=== PATIENT | male | born 1975 | race Caucasian/White ===

== ENCOUNTER → 2017-06-24 | Outpatient (CLI) | payer OTHER ==
[~2017-06-24] MED LIST: Dilantin PO; dilantin PO
--- NOTE | 2017-06-24 15:42 | RAD ---
2 views left knee 06/24/2017 2:00 AM Indication: LEFT HIP AND KNEE PAIN Comparison: None Findings: Nonstandard technique limits evaluation. No definitive fracture dislocation is identified. No gross effusion is seen. No other acute abnormalities are identified. Impression: Limited study without evidence of acute osseous abnormality
--- NOTE | 2017-06-24 16:25 | RAD ---
Indication: Hip and knee pain, unable to bear weight. Technique: 2 views of the left hip are submitted for review. No comparison is available. Findings: There is no fracture or dislocation. There is mild narrowing of the joint space superiorly. Impression: Negative for fracture. Mild joint space narrowing.
== END | disposition home or self-care (01) ==
LOC: PMG 14:04
PROVIDERS: ATTEND Physician Assistant
DX: M25.552 Pain in left hip (principal); M25.562 Pain in left knee
CPT/HCPCS: 73502; 73560

== ENCOUNTER 2018-05-08 15:09 | Emergency (ER) | payer OTHER ==
--- NOTE | 2018-05-08 16:04 | EKG ---
[address] [address] Test Date: 2018-05-08 Test Time: 16:00:14 Pat Name: ANTONINO CAMPBELL Department: Room: Gender: M Licensed Home Inspector: : [id number] Requested By: STEPHANIE GRAVES Order Number: [id number] Reading MD: Baldemar Dubon MD Measurements Intervals [place] Rate: 59 P: 63 MA: 164 QRS: 80 QRSD: 104 T: 52 QT: 398 QTc: 394 Interpretive Statements SINUS RHYTHM LVH WITH REPOLARIZATION ABNORMALITY ABNORMAL ECG Electronically Signed On 05-09-2018 11:48:58 CDT by Baldemar Dubon MD
--- NOTE | 2018-05-08 16:29 | RAD ---
Examination: CHEST AP ONLY History: PORTABLE CHEST XRAY 1 VIEW - nausea, decreased mental status Comparison/Correlation: 08/31/2013 portable chest x-ray exam Findings: Portable upright frontal view of the chest was obtained. Heart size is borderline to mildly enlarged. Left rib fracture is noted. Surgical clips overlying the superior mediastinum. Scoliosis noted. No infiltrate or pleural effusion. No pneumothorax. Impression: No active disease. Electronically signed by: Joel Morales MD (05/08/2018 4:26 PM) [facility]
[2018-05-08] MEDS ORDERED: IV NORMAL SALINE 1,000ML 1,000 ML IV ONE (16:30)
[2018-05-08] MEDS ORDERED: ONDANSETRON PF 4 MG/2 ML VIAL. IV ONE (16:30)
[2018-05-08 16:47] LABS: BASO % 0 % (0-3); EOS # 0.1 x10^3/uL (0.0-0.7); EOS % 1 % (0-3); HEMATOCRIT 46.9 % (39.0-53.0); HEMOGLOBIN 15.8 g/dL (13.0-17.5); LYMPH # 1.7 x10^3/uL (1.0-4.8); LYMPH % 29 % (24-48); MEAN CORPUSCULAR HEMOGLOBIN 30 pg (25-35); MEAN CORPUSCULAR HGB CONC 34 g/dL (31-37); MEAN CORPUSCULAR VOLUME 91 fL (79-100); MONO # 0.4 x10^3/uL (0.0-1.1); MONO % 7 % (0-9); NEUT # 3.5 x10^3uL (1.8-7.7); NEUT % 62 % (31-73); PLATELET COUNT 160 x10^3/uL (140-400); RED BLOOD COUNT 5.18 x10^6/uL (4.30-5.70); RED CELL DISTRIBUTION WIDTH 13.6 % (11.5-14.5); WHITE BLOOD COUNT 5.6 x10^3/uL (4.0-11.0)
[2018-05-08] MEDS ORDERED: amLODIPine BESYLATE 5 MG TABLET PO ONE (17:30)
--- NOTE | 2018-05-08 17:30 | PHYS DOC ---
Past History Past Medical History: Hypertension, Seizure, Other Past Surgical History: Other Alcohol Use: None Drug Use: None Adult General Chief Complaint Chief Complaint: NAUSEA/VOMITING/DIARRHEA HPI HPI Patient is a 43-year-old male with a history of hypertension and seizure disorder who was brought in by caregiver with a chief complaint of nausea and vomiting. Apparently when the patient doesn't feel well and sometimes just for behavioral reasons he will stick his finger down his throat into intermittent emesis. He has been doing that all day today. Normally in the past he would only do it once or twice but apparently this afternoon he did several times over and they could not get him to stop so they brought him to the emergency room for evaluation. History is limited by the patient's nonverbal status at baseline but according to the caregiver the patient has not had fever cough other than coughing after vomiting no diarrhea had a normal large bowel movement this morning have been eating well up until this happened just around lunchtime. Review of Systems Review of Systems Limited by nonverbal at baseline mental status Current Medications Current Medications Current Medications Medications (Trade) Dose Ordered Sig/Facundo Start Time Stop Time Status Last Admin Dose Admin Ondansetron HCl (Zofran) 4 mg 1X ONCE 05/08/18 16:30 05/08/18 16:31 DC 05/08/18 16:37 4 MG Sodium Chloride 1,000 ml @ 1,000 mls/hr 1X ONCE 05/08/18 16:30 05/08/18 17:29 05/08/18 16:30 1,000 MLS/HR Allergies Allergies Allergies Coded Allergies Type Severity Reaction Last Updated Verified No Known Drug Allergies 08/31/13 No Physical Exam Physical Exam Constitutional: Developmental delays obvious HENT: Normocephalic, atraumatic, bilateral external ears normal, oropharynx dry , no oral exudates, nose normal. [] Eyes: PERRLA, EOMI, conjunctiva normal, no discharge. [] Neck: Normal range of motion, no tenderness, supple, no stridor. [] Cardiovascular: Mild tachycardia noted no definite murmurs[] Lungs & Thorax: Bilateral breath sounds clear to auscultation []decreased breath sounds at bilateral lung bases Abdomen: Bowel sounds normal, soft, no tenderness, no masses, no pulsatile masses. [] Skin: Warm, dry, no erythema, no rash. [] Back: No tenderness, no CVA tenderness. [] Extremities: Obvious contractures are noted in the upper extremities neurologic : Patient is nonverbal baseline does smile and response to smile does not really follow commands has obvious contractures and limited neurologic exam. Pupils are equal round and reactive to light P Current Patient Data Vital Signs Vital Signs Date Time Temp Pulse Resp B/P (MAP) Pulse Ox O2 Delivery O2 Flow Rate FiO2 05/08/18 15:17 97.6 68 16 98 Room Air Lab Results Laboratory Tests Test 05/08/18 16:25 White Blood Count 5.6 x10^3/uL (4.0-11.0) Red Blood Count 5.18 x10^6/uL (4.30-5.70) Hemoglobin 15.8 g/dL (13.0-17.5) Hematocrit 46.9 % (39.0-53.0) Mean Corpuscular Volume 91 fL (79-100) Mean Corpuscular Hemoglobin 30 pg (25-35) Mean Corpuscular Hemoglobin Concent 34 g/dL (31-37) Red Cell Distribution Width 13.6 % (11.5-14.5) Platelet Count 160 x10^3/uL (140-400) Neutrophils (%) (Auto) 62 % (31-73) Lymphocytes (%) (Auto) 29 % (24-48) Monocytes (%) (Auto) 7 % (0-9) Eosinophils (%) (Auto) 1 % (0-3) Basophils (%) (Auto) 0 % (0-3) Neutrophils # (Auto) 3.5 x10^3uL (1.8-7.7) Lymphocytes # (Auto) 1.7 x10^3/uL (1.0-4.8) Monocytes # (Auto) 0.4 x10^3/uL (0.0-1.1) Eosinophils # (Auto) 0.1 x10^3/uL (0.0-0.7) Basophils # (Auto) 0.0 x10^3/uL (0.0-0.2) Troponin I Quantitative < 0.017 ng/mL (0-0.055) EKG EKG []EKG shows a normal sinus rhythm rate of 59 LVH pattern is noted in light of that no obvious ischemia was identified this was interpreted by me the time of encounter. Relatively poor baseline somewhat limits the evaluation of the ST segments but don't see any obvious ischemia. Radiology/Procedures Radiology/Procedures [] Impressions: Chest x-ray showed no active chest disease Course & Med Decision Making Course & Med Decision Making Pertinent Labs and Imaging studies reviewed. (See chart for details) 43-year-old male history of developmental delay seizure disorder and hypertension who is presenting with complaint of vomiting apparently patient has had recurrent episodes in his life where he will try to stick his fingers down his throat when he doesn't feel well. He was doing the same thing today. No specific complaint limited historian so plan for basic lab workup EKG troponin urinalysis chest x-ray and labs to evaluate for metabolic or infectious etiology known hypertension blood pressure was 190/107 came down to 150's with no treatment. given zofran with some improvement. sign to niels at 540 pm pending chemistries and u/a. See Dr. Graves note for details. 1. Nausea and Vomiting ( after sticking finger down his throat) 2. UTI? 3. Development Disorder 4. Hx. of SZ-disorder 5. Hx. of HTN 6. Rib fx Give Bactrim DS twice a day. Clear fluid diet. Zofran 8 mg up to 4 x day for nausea and vomiting. ( Will not help if he is sticking his finger down throat. ) Discussed pt Hx with [facility]. They advised he had a normal stool today. No hx of fevers. Has hx of sticking fingers down his throat when does not want to eat something or when he gets ill or when he get upset. No hx of specific ill exposures. No hx of changes in meds. They will monitor him closely and return if any concerns. Re-exam if no improvement. Return tonight if any concerns. Dragon Disclaimer Dragon Disclaimer This electronic medical record was generated, in whole or in part, using a voice recognition dictation system. Departure Departure: Referrals: JANICE MATHEW (PCP) Scripts Ondansetron (ZOFRAN ODT) 8 Mg Tab.rapdis 8 MG PO QID PRN for nv, #30 Prov: JOHANNY DIAZ MD 05/08/18 Sulfamethoxazole/Trimethoprim (BACTRIM DS TABLET) 1 Each Tablet 1 TAB PO BID, #14 TAB Prov: JOHANNY DIAZ MD 05/08/18 STEPHANIE GRAVES MD May 08, 2018 17:30 JOHANNY DIAZ MD May 08, 2018 20:45
[2018-05-08 18:09] LABS: ALBUMIN 4.2 g/dL (3.4-5.0); CALCIUM 9.1 mg/dL (8.5-10.1); CREATININE 0.7 mg/dL (0.7-1.3); GFR 124.3; POTASSIUM 3.4 mmol/L (3.5-5.1); TOTAL BILIRUBIN 0.2 mg/dL (0.2-1.0); TOTAL PROTEIN 8.6 g/dL (6.4-8.2)
[2018-05-08 18:24] LABS: BILIRUBIN,URINE NEG (NEG); CLARITY,URINE CLOUDY; COLOR,URINE YELLOW; GLUCOSE,URINE NEG (NEG)
[2018-05-08 18:25] LABS: AMORPHOUS SEDIMENT,UR PRESENT /HPF; BACTERIA,URINE FEW /HPF (0-FEW); NITRITE,URINE POS (NEG); RBC,URINE 0 /HPF (0-2); SQUAMOUS EPITHELIAL CELL,UR OCC /LPF; UROBILINOGEN,URINE 0.2 mg/dL (0.2 mg/dL); WBC,URINE OCC /HPF (0-4)
[2018-05-08] MEDS ORDERED: SMZ/TMP 800/160MG TABLET. PO ONE (18:45)
[2018-05-08] MEDS ORDERED: ONDA8TAB12 PO (18:47)
[2018-05-08] MEDS ORDERED: SULF1TAB24 PO (18:47)
[2018-05-08 19:01] VITALS: BP 129/98
== END 2018-05-08 19:14 | disposition home or self-care (01) ==
LOC: ER 15:09
DX: R11.2 Nausea with vomiting, unspecified (principal); R62.50 Unspecified lack of expected normal physiological development in childhood; G40.909 Epilepsy, unspecified, not intractable, without status epilepticus; I10 Essential (primary) hypertension; S22.32XA Fracture of one rib, left side, initial encounter for closed fracture; X58.XXXA Exposure to other specified factors, initial encounter; Y93.89 Activity, other specified; Y92.89 Other specified places as the place of occurrence of the external cause; Y99.8 Other external cause status
CPT/HCPCS: 36415; 71045; 80053; 81001; 83690; 84484; 85025; 87086; 93005; 96361; 96374; 99285; J2405; 87186; J7030

== ENCOUNTER 2018-06-08 09:14 | Inpatient (IN) | payer MEDICARE, OTHER ==
[~2018-06-08] VITALS: Ht 142.2 cm; Wt 40.4 kg
[~2018-06-08 09:14] MED LIST changes: +ONDA8TAB12 PO; +SULF1TAB24 PO
[2018-06-08 10:56] VITALS: BP 122/80
[2018-06-08] MEDS ORDERED: ONDANSETRON PF 4 MG/2 ML VIAL. IV PRN (11:45)
[2018-06-08] MEDS ORDERED: CELE200C PO ×2 (11:52)
[2018-06-08] MEDS ORDERED: IRON45TA3 PO (11:52)
[2018-06-08] MEDS ORDERED: POLY119P19 PO (11:52)
[2018-06-08] MEDS ORDERED: CHOL500016 PO (11:52)
[2018-06-08] MEDS ORDERED: SENN1TAB9 PO (11:52)
[2018-06-08] MEDS ORDERED: KETO120S2 TP (11:52)
[2018-06-08] MEDS ORDERED: AMOX875T PO (11:52)
[2018-06-08] MEDS ORDERED: GUAI-40 PO (11:52)
[2018-06-08] MEDS ORDERED: SENN-80 PO (11:52)
[2018-06-08] MEDS ORDERED: PHEN50TA3 PO (12:48)
[2018-06-08] MEDS ORDERED: PHEN100C PO (12:48)
[2018-06-08 12:49] LABS: ALBUMIN 4.6 g/dL (3.4-5.0); ALBUMIN/GLOBULIN RATIO 0.8 (1.0-1.7); ALK PHOS 142 U/L (46-116); ALT (SGPT) 22 U/L (16-63); ANION GAP 13 (6-14); AST (SGOT) 30 U/L (15-37); BLOOD UREA NITROGEN 37 mg/dL (8-26); BUN/CREATININE RATIO 37 (6-20); CALCIUM 10.1 mg/dL (8.5-10.1); CARBON DIOXIDE 27 mmol/L (21-32); CHLORIDE 101 mmol/L (98-107); GFR 82.3; GLUCOSE 128 mg/dL (70-99); MAGNESIUM 2.6 mg/dL (1.8-2.4); PHENY 22.5 mcg/mL (10.0-20.0); POTASSIUM 3.8 mmol/L (3.5-5.1); SODIUM 141 mmol/L (136-145); TOTAL BILIRUBIN 0.3 mg/dL (0.2-1.0); TOTAL PROTEIN 10.1 g/dL (6.4-8.2)
[2018-06-08] MEDS: IV NORMAL SALINE 1,000ML 1,000 ML IV SCH (13:18)
[2018-06-08 13:43] LABS: BASO % 0 % (0-3); EOS % 0 % (0-3); HEMATOCRIT 52.5 % (39.0-53.0); HEMOGLOBIN 17.5 g/dL (13.0-17.5); LYMPH # 1.2 x10^3/uL (1.0-4.8); LYMPH % 8 % (24-48); MEAN CORPUSCULAR HEMOGLOBIN 30 pg (25-35); MEAN CORPUSCULAR HGB CONC 33 g/dL (31-37); MEAN CORPUSCULAR VOLUME 90 fL (79-100); MONO % 7 % (0-9); NEUT # 12.7 x10^3uL (1.8-7.7); NEUT % 85 % (31-73); PLATELET COUNT 168 x10^3/uL (140-400); RED BLOOD COUNT 5.81 x10^6/uL (4.30-5.70); RED CELL DISTRIBUTION WIDTH 14.1 % (11.5-14.5); WHITE BLOOD COUNT 14.9 x10^3/uL (4.0-11.0)
[2018-06-08] MEDS ORDERED: guaiFENesin/PS-EPHED 600/60MG 1 TAB TAB.ER.12H PO PRN (16:00)
[2018-06-08] MEDS ORDERED: SENNOSIDES/DOCUSATE 8.6/50MG TABLET. PO PRN (16:00)
[2018-06-08] MEDS ORDERED: METOCLOPRAMIDE HCL 10 MG/2 ML VIAL. IV PRN (16:00)
[2018-06-08] MEDS ORDERED: IOHEXOL 300 MG/ML 75 ML VIAL. IV ONE (16:00)
[2018-06-08] MEDS ORDERED: NON FORMULARY ITEM (Ondansetron (Zofran Odt) 8 MG) PO PRN (16:00)
[2018-06-08 16:19] VITALS: BP 126/86
--- NOTE | 2018-06-08 17:08 | HP ---
ADMIT DATE: 06/08/2018 HISTORY OF PRESENT ILLNESS: The patient is a 43-year-old male patient, is a resident in a custodial, who was seen today at his primary care physician and was admitted directly from the office as the patient has been putting his fingers down his throat to induce vomiting. According to his caregiver, the patient has been having this recurrent bouts of cough hiccupping and vomiting. For the last month, he has lost weight about 8 pounds and had the first breakthrough seizures since 2014 and apparently was vomiting his antiepileptic medication. He apparently was seen yesterday by Dr. Matthews and apparently was started on antibiotic and was sent back only to continue with cough, vomiting, and inducing vomiting by putting his finger into his mouth. He was seen in his primary care physician's office today and has had lab work, which showed that he is extremely dehydrated and was admitted for further evaluation and treatment. The patient himself is nonverbal as he has cerebral palsy and does not give any useful information. Most of the information was obtained from his caregiver. PAST MEDICAL HISTORY: Significant for cerebral palsy and seizure disorder. He has also some form of congenital heart disease, although I do not have any specifics. PAST SURGICAL HISTORY: Significant for right great toe amputation done about 12 months. He apparently has had an echocardiogram done in 2014 and at that time it showed that his left ventricular systolic function is normal, ejection fraction estimated at 50-55%. There is normal left ventricular segmental wall motion. Doppler and color flow revealed trace tricuspid regurgitation and the pulmonary artery pressure was estimated at 22 mmHg. 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 FAMILY HISTORY: His mother . Father . His grandmother used to take care of him and was his DPOA. His aunt now takes his financial affairs, but she is not his DPOA. SOCIAL HISTORY: He apparently does not smoke, drink alcohol, or use recreational drugs. He is single, never . He has no children. MEDICATIONS: He is currently on following medications: He was on amoxicillin 875 mg twice a day, sulfamethoxazole/trimethoprim, carbonyl iron for Feosol 45 mg once a day, Celebrex 200 mg capsules daily and Celebrex 200 mg twice a day as needed, phenytoin 75 mg p.o. daily, phenytoin 100 mg extended release capsule once a day. He is on Mucinex, the extended release tablet 1 tablet twice a day, polyethylene glycol 17 grams daily. Senna 1 tablet once a day, Senna-S 1 tablet twice a day. He is ondansetron 8 mg tablet 4 times a day and ketoconazole shampoo applied twice a week. He is also on cholecalciferol (Vitamin D3) 5000 international units once a day. REVIEW OF SYSTEMS: As per history of present illness. PHYSICAL EXAMINATION GENERAL: When I examined him this afternoon, he was resting slightly propped up in bed, in no apparent respiratory distress. There is no pallor, jaundice, cyanosis, or thyromegaly. No jugular venous distension. No lower limb edema. VITAL SIGNS: His heart rate was 101, blood pressure was 122/80, temperature was 98.4, respiratory rate was 20, and oxygen saturation was 97%. HEAD, EYES, EARS, NOSE, AND THROAT: Showed normocephalic, atraumatic. NECK: Supple. HEART: Showed normal first and second heart sounds with no gallop, rub, or murmur. CHEST: Clear to auscultation. No crepitation or rhonchi. ABDOMEN: Distended, soft, nontender. No guarding or rigidity. No organomegaly. All hernial orifice intact. Bowel sounds normal. NEUROLOGIC: He is nonverbal. All his cranial nerves are intact. He moves all extremities spontaneously, although he is mostly bedbound, wheelchair bound. He can walk with a 2-person assist. LABORATORY DATA: Showed that his white cell count was high at 14,900, hemoglobin 17.5, hematocrit 52.5, MCV 90 and platelet count of 168,000. His chemistry showed a serum sodium 141, potassium 3.8, chloride 101, bicarbonate 27, anion gap of 13, BUN 37, creatinine 1, estimated GFR was 82 mL per minute. His glucose was 128, calcium was 7.1, magnesium was 2.6. Total bilirubin, AST and ALT are normal. Alkaline phosphatase is high at 142. His total protein was 10.1, INR of 4.6. His toxic screen showed that his phenytoin was 22.5, which is high. PLAN: My plan is to hold off his Coumadin as he might have phenytoin toxicity. We will continue with IV fluid. We will arrange for him to have a CT scan of the chest without contrast and he will probably need upper GI endoscopy given that he has been on Celebrex 200 mg daily and he takes also 200 mg as needed for pain. We will follow his labs closely and decide on further management accordingly. LINDA AZEVEDO MD DR: PEDRO/rich JOB#: [id number] / [id number]
--- NOTE | 2018-06-08 18:11 | RAD ---
CTA Chest with contrast: Clinical History: COUGHING, ELEVATED D-DIMER, POSSIBLE ASPIRATION. 75MLS OMNI 300 IV CONTRAST Shortness of breath. Axial helical images of the chest were obtained after the administration of 75 cc of IV Omni 300 and timed appropriately for a pulmonary arterial study. Conventional axial reconstruction was performed in addition to coronal, sagittal and bilateral oblique MIP (maximum intensity projection). This study was ordered to detect possible pulmonary embolism. There are no filling defects to suggest pulmonary embolism. The lungs and pleural margins are clear. There is no mediastinal or hilar lymphadenopathy. The thoracic aorta appears normal. The esophagus is mildly distended with fluid. The stomach is collapsed there is apparent moderate wall thickening of the stomach. Impression: 1. No evidence of pulmonary embolism. 2. Apparent moderate wall thickening of the stomach could be nondistention or could be secondary to gastritis 3. the esophagus is mildly distended with fluid. PQRS Compliance Statement: One or more of the following individualized dose reduction techniques were utilized for this examination: 1. Automated exposure control 2. Adjustment of the mA and/or kV according to patient size 3. Use of iterative reconstruction technique Electronically signed by: Benton Simpson III, MD (06/08/2018 6:07 PM) [facility]
[2018-06-08 19:21] VITALS: BP 158/84
[2018-06-08] MEDS ORDERED: PHENYTOIN SODIUM PO SCH (21:00)
[2018-06-08] MEDS ORDERED: SENNOSIDES 8.6 MG PO SCH (21:00)
[2018-06-08 23:30] VITALS: BP 104/76
[2018-06-09] MEDS: IV NORMAL SALINE 1,000ML 1,000 ML IV SCH (02:48)
[2018-06-09 05:31] VITALS: BP 112/66
[2018-06-09 06:43] LABS: HEMATOCRIT 46.4 % (39.0-53.0); HEMOGLOBIN 15.4 g/dL (13.0-17.5); RED BLOOD COUNT 5.09 x10^6/uL (4.30-5.70); RED CELL DISTRIBUTION WIDTH 14.2 % (11.5-14.5); WHITE BLOOD COUNT 13.2 x10^3/uL (4.0-11.0)
[2018-06-09 07:02] LABS: ALBUMIN 3.5 g/dL (3.4-5.0); ALBUMIN/GLOBULIN RATIO 0.8 (1.0-1.7); ALK PHOS 105 U/L (46-116); ALT (SGPT) 22 U/L (16-63); ANION GAP 9 (6-14); AST (SGOT) 26 U/L (15-37); BLOOD UREA NITROGEN 29 mg/dL (8-26); BUN/CREATININE RATIO 36 (6-20); CALCIUM 9.1 mg/dL (8.5-10.1); CARBON DIOXIDE 29 mmol/L (21-32); CHLORIDE 108 mmol/L (98-107); CREATININE 0.8 mg/dL (0.7-1.3); GFR 106.5; GLUCOSE 95 mg/dL (70-99); PHENY 15.6 mcg/mL (10.0-20.0); POTASSIUM 4.1 mmol/L (3.5-5.1); SODIUM 146 mmol/L (136-145); TOTAL BILIRUBIN 0.4 mg/dL (0.2-1.0)
[2018-06-09 07:10] LABS: TOTAL PROTEIN 7.9 g/dL (6.4-8.2)
[2018-06-09] MEDS ORDERED: IRON CARBONYL 45 MG PO SCH (09:00)
[2018-06-09] MEDS ORDERED: PHENYTOIN 50 MG TAB.CHEW PO SCH (09:00)
[2018-06-09] MEDS ORDERED: NON FORMULARY ITEM (Cholecalciferol (Vitamin D3) (Vitamin D3) 1 TAB) PO SCH (09:00)
[2018-06-09] MEDS ORDERED: POLYETHYLENE GLYCOL 3350 255 GM POWDER. PO SCH (09:00)
[2018-06-09] MEDS ORDERED: FOSPHENYTOIN 100 MG/2 ML VIAL IV SCH (10:45)
[2018-06-10] MEDS ORDERED: KETOCONAZOLE 2% SHAMPOO 120ML BOTTLE. TP SCH (09:00)
== END 2018-06-09 08:28 | disposition short-term general hospital (02) | DRG 641 ==
LOC: 1 SOUTH 10:12
PROVIDERS: ADMIT Internal Medicine; ATTEND Internal Medicine
DX: E86.0 Dehydration (principal); G40.909 Epilepsy, unspecified, not intractable, without status epilepticus; G80.9 Cerebral palsy, unspecified; Z89.411 Acquired absence of right great toe; Z79.899 Other long term (current) drug therapy; T42.0X5A Adverse effect of hydantoin derivatives, initial encounter
CPT/HCPCS: 36415; 71275; 80053; 80185; 83735; 85025; 85027; 87641; J1956; J2405; J2765; Q9967; J7030

== ENCOUNTER 2018-07-03 20:16 | Inpatient (IN) | payer MEDICARE, OTHER ==
[~2018-07-03] VITALS: Ht 152.4 cm; Wt 46.3 kg
[~2018-07-03 20:16] MED LIST changes: +AMOX875T PO; +CELE200C PO; +CHOL500016 PO; +GUAI-40 PO; +IRON45TA3 PO; +KETO120S2 TP; +PHEN100C PO; +PHEN50TA3 PO; +POLY119P19 PO; +SENN-80 PO; +SENN1TAB9 PO
[2018-07-03] MEDS ORDERED: LIDOCAINE 1%/EPI 1:100,000 20 ML VIAL. IJ ONE (20:45)
--- NOTE | 2018-07-03 20:50 | PHYS DOC ---
Past History Past Medical History: Hypertension, Seizure, Other Past Surgical History: Other Alcohol Use: None Drug Use: None Adult General Chief Complaint Chief Complaint: MECHANICAL FALL HPI HPI 43-year-old male presents via EMS after fall. The patient has special needs and is nonverbal. He is confined to a wheelchair at baseline. He was placed on the wheelchair lift at his facility when he fell forward out of his wheelchair and hit his head on a metal floor piece on the left. He sustained a laceration to the right forehead. The patient was reported to be knocked unconscious for 30 seconds. He was not responding very well after he woke up at that time, but that is significantly improved. The patient is acting at baseline according to staff who accompany him. He has a laceration and blood under his nose. No reported fever at the care facility. Review of Systems Review of Systems Limited due to being nonverbal. ROS comes mostly from care facility staff. Constitutional: Denies fever or chills [] Eyes: Denies redness [] HENT: Bloody noset [] Respiratory: Denies cough or shortness of breath [] Cardiovascular: No additional information not addressed in HPI [] GI: Denies nausea, vomiting, [] : Denies hematuria [] Musculoskeletal: Denies back pain [] Integument: Laceration [] Neurologic: Denies focal weakness [] Endocrine: [] All other systems were reviewed and found to be within normal limits, except as documented in this note. Current Medications Current Medications Current Medications Medications (Trade) Dose Ordered Sig/Facundo Start Time Stop Time Status Last Admin Dose Admin Lidocaine/ Epinephrine (Xylocaine 1%-Epi 1:100,000) 20 ml 1X ONCE 07/03/18 20:45 07/03/18 20:46 Allergies Allergies Allergies Coded Allergies Type Severity Reaction Last Updated Verified No Known Drug Allergies 07/03/18 No Physical Exam Physical Exam Constitutional: Well developed, well nourished, no acute distress, non-toxic appearance. [] HENT: Normocephalic, atraumatic, bilateral external ears normal, oropharynx moist, no oral exudates, nose with dried blood. [] Eyes: PERRLA, EOMI, conjunctiva normal, no discharge. [] Neck: No tenderness, supple, no stridor. [] Cardiovascular:Heart rate regular rhythm, no murmur [] Lungs & Thorax: Bilateral breath sounds clear to auscultation [] Abdomen: Bowel sounds normal, soft, no tenderness, no masses, no pulsatile masses. [] Skin: 2.5 cm laceration of the right forehead[] Back: No tenderness, no CVA tenderness. [] Extremities: No tenderness, no cyanosis [] Neurologic: Alert, normal sensory function, no focal deficits noted. [] Psychologic: Affect normal, mood normal. [] Current Patient Data Vital Signs Vital Signs Date Time Temp Pulse Resp B/P (MAP) Pulse Ox O2 Delivery O2 Flow Rate FiO2 07/03/18 20:37 103.1 78 22 118/68 (85) 95 Room Air EKG EKG [] Radiology/Procedures Radiology/Procedures [] Impressions: CT brain without contrast, CT facial bones without contrast HISTORY: Fever laceration above right eye, nasal swelling, fall CT scan of brain was done without contrast. There is no intracranial hemorrhage. Ventricles are normal in size. There is decreased density in the posterior frontal lobe at the sylvian fissure on the left which suggests a subacute CVA. I do not have any old studies for comparison. There is also old left white matter lacunar infarctThere adjacent to the lateral ventricle. There is decreased density in the right cerebellum suggesting an old CVA. A skull fracture is not identified. There is minimal because thickening in the sinuses. Patient's had previous mastoid surgery on the right. CT FACIAL BONES: Axial CT images were obtained through the facial bones. A mandible fracture is not identified. There is motion artifact on some of the images. An acute facial or orbital fracture is not identified. There is mucosal thickening in the maxillary and ethmoid sinuses. IMPRESSION: 1. Old lacunar infarcts in the white matter adjacent the lateral ventricle on the left and the cerebellum on the right. 2. Probable subacute CVA along the sylvian fissure on the left 3. No intracranial hemorrhage. 4. No facial fracture noted. 5. Mucosal thickening in the maxillary and point sinuses. AP chest. HISTORY: Fever AP view was taken of the chest. The heart is enlarged. There is no effusion. There are no confluent infiltrates. There is thoracolumbar scoliosis. There is bowel distention in the abdomen. IMPRESSION: 1. Cardiomegaly. 2. No acute infiltrates. Electronically signed by: Gatito Aggarwal MD (07/03/2018 11:20 PM) [facility] DICTATED AND SIGNED BY: GATITO AGGARWAL MD DATE: 07/03/18 2318 CC: LAURO WHEAT DO; JANICE MATHEW Course & Med Decision Making Course & Med Decision Making Pertinent Labs and Imaging studies reviewed. (See chart for details) On arrival the patient is a fever of 103 in addition to his forehead laceration and bloody nose. The patient's head CT is negative for acute findings. His chest x-ray is negative for acute findings. His labs are negative in for slight white count 12.2. Urinalysis is negative for infection. I do not have a source for the patient's fever. I am going to cover him with Rocephin and Flagyl. My suspicion is this is aspiration pneumonia. He does have some erythematous areas on his hands where he bites himself, but it does not look like cellulitis. Blood cultures were ordered prior to antibiotics. Patient will be admitted to the hospital for further management. Dr. Solomon has accepted the patient for admission. [] Dragon Disclaimer Dragon Disclaimer This electronic medical record was generated, in whole or in part, using a voice recognition dictation system. Laceration Repair Lac Repair Indication: [2.5 cm linear laceration of the right forehead. 2.5 cm total length T-shaped laceration of the upper lip.] Procedure: Verbal consent for the procedure was obtained from the patient's guardian. The wounds were thoroughly cleansed with saline under pressure. There were no foreign bodies found. The wounds were anesthetized with LET gel. I was able to repair the forehead laceration with 4 4-0 Ethilon sutures in an interrupted fashion. There was good skin approximation. Bleeding was controlled. The upper lip laceration required sedation with ketamine. Once the patient was adequately sedated, I was able to repair this complex T shaped laceration with 5 4-0 Ethilon sutures. There was good skin approximation. Bleeding was controlled. Total repaired wound length: 2.5, 2.5. Other Items: 2 lacerations The patient tolerated the procedure well. Complications: Ketamine sedation was required.. Departure Departure: Referrals: JANICE MATHEW (PCP) LAURO WHEAT DO Jul 03, 2018 20:50
[2018-07-03 21:29] LABS: BASO % 0 % (0-3); EOS % 0 % (0-3); HEMATOCRIT 41.3 % (39.0-53.0); HEMOGLOBIN 13.7 g/dL (13.0-17.5); LYMPH # 1.4 x10^3/uL (1.0-4.8); LYMPH % 11 % (24-48); MEAN CORPUSCULAR HEMOGLOBIN 30 pg (25-35); MEAN CORPUSCULAR HGB CONC 33 g/dL (31-37); MEAN CORPUSCULAR VOLUME 90 fL (79-100); MONO # 0.8 x10^3/uL (0.0-1.1); MONO % 7 % (0-9); NEUT % 81 % (31-73); PLATELET COUNT 152 x10^3/uL (140-400); RED BLOOD COUNT 4.57 x10^6/uL (4.30-5.70); RED CELL DISTRIBUTION WIDTH 14.4 % (11.5-14.5); WHITE BLOOD COUNT 12.2 x10^3/uL (4.0-11.0)
[2018-07-03 21:43] LABS: BILIRUBIN,URINE NEG (NEG); CLARITY,URINE CLEAR; COLOR,URINE YELLOW; GLUCOSE,URINE NEG (NEG)
[2018-07-03 21:44] LABS: BACTERIA,URINE 0 /HPF (0-FEW); NITRITE,URINE NEG (NEG); SQUAMOUS EPITHELIAL CELL,UR OCC /LPF; UROBILINOGEN,URINE 0.2 mg/dL (0.2 mg/dL)
[2018-07-03] MEDS ORDERED: LIDOCAINE/EPI/TETRACAINE TOPICAL GEL 3 ML. TP ONE (22:00)
[2018-07-03] MEDS ORDERED: ACETAMINOPHEN 650 MG SUPP.RECT. PR ONE (22:15)
[2018-07-03] MEDS ORDERED: NEOMY/BACITR/POLYMYXIN OINT PACKET. TP ONE ×2 (22:18→23:30)
--- NOTE | 2018-07-03 22:37 | RAD ---
CT brain without contrast, CT facial bones without contrast HISTORY: Fever laceration above right eye, nasal swelling, fall CT scan of brain was done without contrast. There is no intracranial hemorrhage. Ventricles are normal in size. There is decreased density in the posterior frontal lobe at the sylvian fissure on the left which suggests a subacute CVA. I do not have any old studies for comparison. There is also old left white matter lacunar infarctThere adjacent to the lateral ventricle. There is decreased density in the right cerebellum suggesting an old CVA. A skull fracture is not identified. There is minimal because thickening in the sinuses. Patient's had previous mastoid surgery on the right. CT FACIAL BONES: Axial CT images were obtained through the facial bones. A mandible fracture is not identified. There is motion artifact on some of the images. An acute facial or orbital fracture is not identified. There is mucosal thickening in the maxillary and ethmoid sinuses. IMPRESSION: 1. Old lacunar infarcts in the white matter adjacent the lateral ventricle on the left and the cerebellum on the right. 2. Probable subacute CVA along the sylvian fissure on the left 3. No intracranial hemorrhage. 4. No facial fracture noted. 5. Mucosal thickening in the maxillary and point sinuses. PQRS Compliance Statement: One or more of the following individualized dose reduction techniques were utilized for this examination: 1. Automated exposure control 2. Adjustment of the mA and/or kV according to patient size 3. Use of iterative reconstruction technique Electronically signed by: Gatito Aggarwal MD (07/03/2018 10:33 PM) [facility]
[2018-07-03 23:00] LABS: ALBUMIN 3.6 g/dL (3.4-5.0); ALBUMIN/GLOBULIN RATIO 0.8 (1.0-1.7); CALCIUM 8.7 mg/dL (8.5-10.1); CREATININE 0.7 mg/dL (0.7-1.3); GFR 124.3; TOTAL BILIRUBIN 0.2 mg/dL (0.2-1.0)
[2018-07-03] MEDS ORDERED: DIPHTH,PERTUSS(ACELL),TET TOX 0.5 ML DISP.SYRIN. VAX IM ONE (23:00)
--- NOTE | 2018-07-03 23:24 | RAD ---
AP chest. HISTORY: Fever AP view was taken of the chest. The heart is enlarged. There is no effusion. There are no confluent infiltrates. There is thoracolumbar scoliosis. There is bowel distention in the abdomen. IMPRESSION: 1. Cardiomegaly. 2. No acute infiltrates. Electronically signed by: Gatito Aggarwal MD (07/03/2018 11:20 PM) [facility]
[2018-07-04 00:17] LABS: INFLUENZA A PATIENT NEGATIVE (NEGATIVE); INFLUENZA B PATIENT NEGATIVE (NEGATIVE)
[2018-07-04] MEDS ORDERED: KETAMINE HCL 500 MG/10 ML VIAL. IV ONE (01:30)
[2018-07-04] MEDS ORDERED: KETOROLAC 30 MG/ML VIAL. ONE (01:53)
[2018-07-04] MEDS ORDERED: IV NORMAL SALINE 1,000ML 1,000 ML IV ONE ×3 (02:00→06:30)
[2018-07-04] MEDS ORDERED: KETOROLAC 30 MG/ML VIAL. IV ONE (02:30)
[2018-07-04] MEDS ORDERED: IV NORMAL SALINE 100ML 100 ML ONE (04:25)
[2018-07-04] MEDS ORDERED: ONDANSETRON PF 4 MG/2 ML VIAL. IV PRN (04:30)
--- NOTE | 2018-07-04 05:01 | PHYS DOC ---
MODERATE SEDATION ASSESSMENT* RISKS/ALTERNATIVES Risks/Alternatives Risks and alternatives of this type of sedation and procedure discussed with: RISK/ALTERNATIVES DISCUSSED: Sig. Other H & P ON CHART H & P H & P on chart and reviewed for co-morbid conditions and appropriate labs. H&P ON CHART: Yes STATUS PREG STATUS ASSESSED: N/A MEDS/ALLERGIES REVIEWED Meds/Allergies Reviewed Medications and Allergies including time and route of recently administered narcotics and sedatives. MEDS/ALLERGIES REVIEWED: Yes ASA RATING ASA RATING: II AIRWAY ASSESSMENT Airway Assessment Airway patency, oral function limitations, presence of caps, crowns, dentures, partials, and ability to extend neck assessed. AIRWAY ASSESSMENT: Yes MALLAMPATI SCORE MALLAMPATI SCORE: II PRE-SEDATION ASSESSMENT PRE-SEDATION PHYSICAL: Yes LAURO WHEAT DO Jul 04, 2018 05:01
[2018-07-04 06:51] VITALS: BP 90/51
[2018-07-04] MEDS ORDERED: OMEP40CA5 PO (08:39)
[2018-07-04] MEDS ORDERED: PHEN100C PO (08:39)
[2018-07-04] MEDS ORDERED: POLY255P11 PO (08:39)
[2018-07-04 11:16] VITALS: BP 97/54
[2018-07-04] MEDS: IV NORMAL SALINE 1,000ML 1,000 ML IV SCH (14:47)
--- NOTE | 2018-07-04 14:57 | HP ---
ADMIT DATE: 07/04/2018 HISTORY OF PRESENT ILLNESS: The patient is a 43-year-old male patient, resident at the [facility], who was brought to the Emergency Room by the emergency medical service personnel after a fall. The patient has special needs and is nonverbal. He is confined to a wheelchair at baseline. He was placed in his wheelchair left at his facility and when he fell forward out of his wheelchair and hit his head on a metal floor piece on the left. He sustained a laceration to the right forehead. The patient was reported to be knocked unconscious for almost 30 seconds. He was not responding very well after he woke up at that time, but that is significantly improved. The patient is acting at baseline according to the staff, who accompanied him. He has a laceration and blood under his nose. No reported fever at the care facility. He was basically sedated to suture his right forehead and right upper lip laceration. While in the Emergency Room he apparently was noted to be also febrile with temperature that went up to 103.4. Apparently, he was pancultured and was started on IV fluid and IV antibiotic. 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 He has probable subacute CVA along the sylvian fissure on the left. No intracranial hemorrhage. No facial fracture is noted. Mucosal thickening in the maxillary and frontal sinuses. His chest x-ray showed that the patient has cardiomegaly. There is no effusion. There is no confluent infiltrate. There is thoracolumbar scoliosis. There is bowel distention in the abdomen. PAST MEDICAL HISTORY: Significant for cerebral palsy and seizure disorder. He also has some form of congenital heart disease, although I do not have any more specific information about that. PAST SURGICAL HISTORY: Significant for right great toe amputation done about 12 months ago. Apparently, he has had an echocardiogram done in 2014. At that time, it showed that he has difficulty, function is normal, ejection fraction is normal. FAMILY HISTORY: His mother . His father . His grandmother used to be his harbor [employer] launch commander and was his DPOA. His aunt now takes care of his financial affairs, but she is not his DPOA. SOCIAL HISTORY: He apparently does not smoke, drink alcohol or use recreational drugs. He is single, never , has no children. MEDICATIONS: He is currently on following medications: He is on phenytoin sodium 100 mg takes half a tablet and Dilantin 0.75 mg capsule. He is on polyethylene glycol 17 grams daily, senna 1 tablet at bedtime, Senna-S 1 tablet twice a day and omeprazole 40 mg once a day. PHYSICAL EXAMINATION: GENERAL: On arrival to the Emergency Room, he apparently was febrile, pale, but no jaundice, cyanosis or thyromegaly. No jugular venous distension. No limb edema. VITAL SIGNS: His heart rate was 76, blood pressure was 118/68, temperature was 103.4, respiratory rate was 24, and oxygen saturation was 97%. HEAD, EYES, EARS, NOSE, AND THROAT: Showed normocephalic, atraumatic. NECK: Supple. HEART: Showed normal first and second heart sounds. No gallop, rub or murmur. CHEST: Clear to auscultation. No crepitation or rhonchi. ABDOMEN: Scaphoid, soft, nontender. NEUROLOGIC: He was initially at his baseline. However, two sutures right forehead laceration and right upper lip laceration he was sedated and the wounds were sutured and he continued to be somewhat sedated. He is nonverbal, but all his other cranial nerves seem to be intact. EXTREMITIES: He moves extremities without difficulty, although he is mostly bedbound, chair bound. He is a 2-person assist. LABORATORY DATA: While in the Emergency Room, he has lab work done, which showed a white cell count 12,200, hemoglobin 13.7, hematocrit 41, MCV 90, and platelet count of 152,000. His chemistry showed a serum sodium 140, potassium 4, chloride 102, bicarbonate 29, anion gap of 13, creatinine was 0.7, estimated GFR was 124 mL per minute. His glucose was 110, calcium was 8.7. Total bilirubin, AST, ALT, alkaline phosphatase were normal. Total protein was 8, albumin was 3.9. As I stated earlier, his CT scan of the head and facial bones showed old lacunar infarct in the white matter adjacent to the lateral ventricle in the left side and cerebellum on the right. He has probable subacute CVA along with the sylvian fissure on the left. There is no intracranial hemorrhage, no facial fracture noted. He has mucosal thickening in the maxillary and frontal sinuses. His chest x-ray showed cardiomegaly, but no acute infiltrate. SUMMARY: This is a 43-year-old male patient, a resident at [facility], who is known to have cerebral palsy. He is mostly nonverbal. He is a 2-person assist. He is mostly bedbound, chair bound. He was admitted recently with recurrent bouts of nausea, vomiting and was gagging himself constantly and was found to have severe esophagitis, which we start him on omeprazole after an upper GI endoscopy done at [facility]. He fell sustaining right forehead laceration and right upper lip laceration that were sutured. In the Emergency Room, he was found to be febrile with leukocytosis with no obvious site of infection as his urinalysis is unremarkable and chest x-ray, which showed cardiomegaly, but no infiltrate. He was pancultured and started empirically on IV Rocephin and Flagyl. I would continue with these antibiotics for now. I am concerned about his seizures and worried about breakthrough. I will consult the pharmacy to see whether Keppra IV can be used for now until his level of consciousness improves and he stop taking his Dilantin. LINDA AZEVEDO MD DR: PEDRO/rich JOB#: [id number] / [id number]
[2018-07-04 15:30] VITALS: BP 99/50
[2018-07-04 19:47] VITALS: BP 93/60
[2018-07-05] MEDS: IV NORMAL SALINE 1,000ML 1,000 ML IV SCH ×3 (00:33→23:46)
[2018-07-05 06:16] LABS: BASO % 0 % (0-3); EOS # 0.1 x10^3/uL (0.0-0.7); EOS % 1 % (0-3); HEMATOCRIT 36.5 % (39.0-53.0); LYMPH # 1.8 x10^3/uL (1.0-4.8); LYMPH % 19 % (24-48); MEAN CORPUSCULAR HEMOGLOBIN 30 pg (25-35); MEAN CORPUSCULAR HGB CONC 33 g/dL (31-37); MEAN CORPUSCULAR VOLUME 92 fL (79-100); MONO # 0.7 x10^3/uL (0.0-1.1); MONO % 7 % (0-9); NEUT % 73 % (31-73); PLATELET COUNT 94 x10^3/uL (140-400); RED BLOOD COUNT 3.99 x10^6/uL (4.30-5.70); RED CELL DISTRIBUTION WIDTH 14.1 % (11.5-14.5); WHITE BLOOD COUNT 9.5 x10^3/uL (4.0-11.0)
[2018-07-05 06:29] LABS: ALBUMIN 2.6 g/dL (3.4-5.0); ALBUMIN/GLOBULIN RATIO 0.7 (1.0-1.7); CREATININE 0.6 mg/dL (0.7-1.3); GFR 148.5; POTASSIUM 3.7 mmol/L (3.5-5.1); TOTAL BILIRUBIN 0.1 mg/dL (0.2-1.0); TOTAL PROTEIN 6.2 g/dL (6.4-8.2)
[2018-07-05 06:51] VITALS: BP 124/80
[2018-07-05 07:44] LABS: PLT ESTIMATE DECREASED (ADEQUATE)
[2018-07-05] MEDS: LACTOBACILLUS RHAMNOSUS GG 1 CAPSULE. PO SCH ×2 (09:00→21:09)
[2018-07-05] MEDS ORDERED: SENNOSIDES/DOCUSATE 8.6/50MG TABLET. PO PRN (10:30)
[2018-07-05] MEDS ORDERED: PHENYTOIN SODIUM PO SCH ×2 (10:30)
--- NOTE | 2018-07-05 10:54 | PN ---
DATE: 07/05/2018 SUBJECTIVE: The patient is resting, slightly propped up in bed, definitely more awake, alert, has eaten some of his breakfast. He is afebrile. PHYSICAL EXAMINATION: GENERAL: When I examined him, he looked pale, but no jaundice, cyanosis or thyromegaly. No jugular venous distension. No lower limb edema. VITAL SIGNS: Heart rate was 68, blood pressure was 124/80, temperature was 99.3, respiratory rate was 22 and oxygen saturation was 94% on room air. HEAD, EYES, EARS, NOSE AND THROAT: Showed normocephalic. He has sutured laceration of the right forehead and also laceration of his right upper lip that is sutured, marked soft tissue swelling. NECK: Supple. CARDIAC: Normal first and second heart sounds. No gallop, rub, or murmur. CHEST: Clear to auscultation. No crepitation or rhonchi. ABDOMEN: Distended, soft, nontender. No guarding or rigidity. No organomegaly. All hernial orifices are intact. Bowel sounds normal. NEUROLOGIC: He was awake, alert, and smiles. He is mostly nonverbal. All his cranial nerves are intact. EXTREMITIES: He moves his extremities spontaneously, although he is mostly bedbound, chair bound. His intake was 3100, no output was recorded. LABORATORY DATA: As of this morning, his serum sodium was 139, potassium 3.7, chloride 104, bicarbonate 27, anion gap of 8, BUN 7, creatinine 0.6, estimated GFR was 148 mL per minute, his glucose 76, calcium was 8. Total bilirubin, AST, ALT, alkaline phosphatase were normal. Total protein 6.2, albumin 2.6. His white cell count was 9500, hemoglobin 12, hematocrit 36, MCV 92, and platelet count of 94,000. His nasal screen for MRSA by PCR was negative. His influenza A and B were negative. ASSESSMENT: Fall with laceration to the right forehead and right upper lip that both sutured; fever, source of infection is not very clear. The patient was pancultured and started on IV Rocephin and Flagyl, cerebral palsy with cognitive impairment. The patient is nonverbal, seizure disorder, severe esophagitis. PLAN: To continue with IV antibiotic. Continue IV Keppra. I will reconcile his medication. LINDA AZEVEDO MD DR: PEDRO/rich JOB#: [id number] / [id number]
[2018-07-05] MEDS: POLYETHYLENE GLYCOL 3350 17 GM PACKET. PO SCH (11:00)
[2018-07-05] MEDS ORDERED: PHENYTOIN 50 MG TAB.CHEW PO SCH ×2 (11:00→21:00)
[2018-07-05 11:41] VITALS: BP 105/65
[2018-07-05] MEDS: PANTOPRAZOLE 40 MG TABLET. PO SCH (11:48)
[2018-07-05 16:10] VITALS: BP 113/66
[2018-07-05 20:18] VITALS: BP 107/70
[2018-07-05] MEDS ORDERED: SENNOSIDES 8.6 MG TABLET PO SCH (21:00)
[2018-07-05] MEDS ORDERED: SENNOSIDES 8.6 MG PO SCH (21:00)
[2018-07-05 23:26] VITALS: BP 107/57
[2018-07-06 06:25] VITALS: BP 128/72
[2018-07-06] MEDS: IV NORMAL SALINE 1,000ML 1,000 ML IV SCH (06:30)
[2018-07-06 06:36] LABS: HEMATOCRIT 36.3 % (39.0-53.0); HEMOGLOBIN 12.1 g/dL (13.0-17.5); WHITE BLOOD COUNT 7.2 x10^3/uL (4.0-11.0)
[2018-07-06 06:38] LABS: CALCIUM 8.1 mg/dL (8.5-10.1); CREATININE 0.6 mg/dL (0.7-1.3); GFR 148.5; POTASSIUM 3.6 mmol/L (3.5-5.1)
[2018-07-06] MEDS: PANTOPRAZOLE 40 MG TABLET. PO SCH (08:18)
[2018-07-06] MEDS: POLYETHYLENE GLYCOL 3350 17 GM PACKET. PO SCH (08:19)
[2018-07-06] MEDS: LACTOBACILLUS RHAMNOSUS GG 1 CAPSULE. PO SCH (08:19)
[2018-07-06] MEDS ORDERED: PHENYTOIN 50 MG TAB.CHEW PO SCH (09:00)
[2018-07-06 11:33] VITALS: BP 123/71
[2018-07-06] MEDS ORDERED: AMOX1TAB58 PO (13:57)
--- NOTE | 2018-07-06 14:38 | DS ---
DATE OF DISCHARGE: 07/06/2018 HOSPITAL COURSE: The patient is a 43-year-old male patient, a resident at [facility], who apparently fell, sustaining laceration of the right forehead and the upper lip. He was seen in the Emergency Room where these wounds were sutured. However, by the time he arrived to the Emergency Room, he was also found to be febrile with temperature of 103.4. He was pancultured and we did start him empirically on IV Rocephin and Flagyl. The patient did very well, though his wounds are healing nicely with no redness, tenderness or discharge. He remained afebrile thereafter. However, his blood cultures remained negative. His chest x-ray was unremarkable. He is awake, alert, eating and drinking without any problem and a decision was made to discharge him back to [facility] to continue with oral antibiotic. Continue with all his other medications. PHYSICAL EXAMINATION: GENERAL: When I saw him this afternoon, he looked well and was clearly in no apparent respiratory distress, slightly pale, but no jaundice, cyanosis, or thyromegaly. No jugular venous distension. No lower limb edema. VITAL SIGNS: His heart rate was 52, blood pressure was 123/71, temperature was 98.3, respiratory rate was 16 and oxygen saturation was 94%. HEAD, EYES, EARS, NOSE AND THROAT: Showed normocephalic, atraumatic. NECK: Supple. HEART: Showed normal first and second heart sounds. No gallop, rub or murmur. CHEST: Clear to auscultation. No crepitation or rhonchi. ABDOMEN: Scaphoid, soft, nontender. NEUROLOGIC: He was more awake and alert. He is nonverbal. He makes some sounds, but all his cranial nerves seem to be grossly intact. He moves extremities without difficulty. He is a 2-person assist. He is mostly bedbound, chair bound. EXTREMITIES: Examination of the skin showed that his right forehead and upper lip laceration that were sutured are healing nicely with no redness, tenderness or discharge. His intake over the last 24 hours was 2000, no output was recorded. LABORATORY DATA: His lab work as of this morning showed a white cell count 7200, hemoglobin 12, hematocrit 36, MCV 91, and platelet count of 107,000. His chemistry showed a serum sodium 141, potassium 3.6, chloride 105, bicarbonate 29, anion gap of 7, BUN 4, creatinine 0.6, estimated GFR was 148 mL per minute. His glucose was 82 and calcium was 8.1. Total protein was 6.2 and albumin 2.6. FINAL DISCHARGE DIAGNOSES: Fall with right forehead and upper lip laceration that are healing nicely, has febrile illness, the site of which is not very clear. He responded very well to Flagyl and Rocephin. So far, all his blood cultures were negative. His urinalysis was also unremarkable. OTHER MEDICAL PROBLEMS: Include: 1. Cerebral palsy. 2. Seizure disorder. 3. Severe esophagitis for which he is on omeprazole. 4. Cognitive impairment. LINDA AZEVEDO MD DR: PEDRO/rich JOB#: [id number] / [id number]
== END 2018-07-06 15:18 | disposition home or self-care (01) | DRG 872 ==
LOC: ER 20:16 → 1 SOUTH 07-04 06:16
PROVIDERS: ADMIT Internal Medicine; ATTEND Internal Medicine
PROC: 0CQ0XZZ Repair Upper Lip, External Approach (ICD-10-PCS; principal; 2018-07-04)
PROC: 0HQ1XZZ Repair Face Skin, External Approach (ICD-10-PCS; 2018-07-04)
DX: A41.9 Sepsis, unspecified organism (principal); S01.81XA Laceration without foreign body of other part of head, initial encounter; S01.511A Laceration without foreign body of lip, initial encounter; G80.9 Cerebral palsy, unspecified; G40.909 Epilepsy, unspecified, not intractable, without status epilepticus; K20.9 Esophagitis, unspecified; M41.9 Scoliosis, unspecified; I11.9 Hypertensive heart disease without heart failure; W05.0XXA Fall from non-moving wheelchair, initial encounter; W22.8XXA Striking against or struck by other objects, initial encounter; Z86.73 Personal history of transient ischemic attack (TIA), and cerebral infarction without residual deficits; Z99.3 Dependence on wheelchair; Z89.411 Acquired absence of right great toe; Z23 Encounter for immunization; Y93.89 Activity, other specified; Y92.89 Other specified places as the place of occurrence of the external cause; Y99.8 Other external cause status
CPT/HCPCS: 12013; 36415; 70450; 70486; 71045; 80048; 80053; 81001; 83605; 85025; 85027; 87040; 87641; 87804; 90471; 90715; 96361; 96365; 96366; 96375; J0696; J1885; J1953; J3490; 99285-25; J7030

== ENCOUNTER 2018-09-21 18:34 | Emergency (ER) | payer MEDICARE, OTHER ==
[~2018-09-21] VITALS: Ht 152.4 cm; Wt 43.8 kg
[~2018-09-21 18:34] MED LIST changes: +AMOX1TAB58 PO; +OMEP40CA5 PO; +POLY255P11 PO; +SENN-162 PO; -SENN1TAB9 PO
[2018-09-21] MEDS ORDERED: IV RINGERS SOLUTION,LACTATED 1,000 ML IV SCH (18:41)
--- NOTE | 2018-09-21 18:59 | EKG ---
[address] [address] Test Date: 2018-09-21 Test Time: 18:56:40 Pat Name: ANTONINO CAMPBELL Department: Room: Gender: M Criminalist Technician: DIONNE : 1975 Requested By: JOHANNY DIAZ Order Number: [id number] Reading MD: Baldemar Dubon MD Measurements Intervals [place] Rate: 73 P: 70 ID: [id number] QRS: 64 QRSD: 88 T: 59 QT: 352 QTc: 391 Interpretive Statements SINUS RHYTHM NON-SPECIFIC ST/T CHANGES Electronically Signed On 09-29-2018 9:49:28 CDT by Baldemar Dubon MD
[2018-09-21] MEDS ORDERED: levETIRAcetam 500 MG/5 ML VIAL IV ONE (19:29)
[2018-09-21] MEDS ORDERED: IV NORMAL SALINE 100ML 100 ML ONE (19:29)
[2018-09-21 19:46] LABS: BASO % 0 % (0-3); EOS % 0 % (0-3); HEMOGLOBIN 14.5 g/dL (13.0-17.5); LYMPH # 0.9 x10^3/uL (1.0-4.8); LYMPH % 17 % (24-48); MEAN CORPUSCULAR HEMOGLOBIN 29 pg (25-35); MEAN CORPUSCULAR HGB CONC 33 g/dL (31-37); MEAN CORPUSCULAR VOLUME 89 fL (79-100); MONO # 0.5 x10^3/uL (0.0-1.1); MONO % 11 % (0-9); NEUT # 3.8 x10^3uL (1.8-7.7); NEUT % 73 % (31-73); PLATELET COUNT 117 x10^3/uL (140-400); RED BLOOD COUNT 4.94 x10^6/uL (4.30-5.70); RED CELL DISTRIBUTION WIDTH 14.8 % (11.5-14.5); WHITE BLOOD COUNT 5.2 x10^3/uL (4.0-11.0)
[2018-09-21 20:19] VITALS: BP 109/65
[2018-09-21 20:29] LABS: BILIRUBIN,URINE NEG (NEG); CLARITY,URINE HAZY; COLOR,URINE AMBER; GLUCOSE,URINE NEG (NEG)
[2018-09-21 20:30] LABS: BACTERIA,URINE 0 /HPF (0-FEW); NITRITE,URINE NEG (NEG); RBC,URINE 0 /HPF (0-2); SQUAMOUS EPITHELIAL CELL,UR OCC /LPF; UROBILINOGEN,URINE 1 mg/dL (0.2 mg/dL); WBC,URINE 0 /HPF (0-4)
[2018-09-21 20:46] LABS: ALBUMIN 3.8 g/dL (3.4-5.0); ALK PHOS 111 U/L (46-116); ALT (SGPT) 22 U/L (16-63); ANION GAP 6 (6-14); AST (SGOT) 27 U/L (15-37); BLOOD UREA NITROGEN 14 mg/dL (8-26); CALCIUM 8.6 mg/dL (8.5-10.1); CARBON DIOXIDE 32 mmol/L (21-32); CHLORIDE 102 mmol/L (98-107); CREATININE 0.5 mg/dL (0.7-1.3); DIRECT BILIRUBIN < 0.1 mg/dL (0.0-0.2); GFR 183.2; GLUCOSE 97 mg/dL (70-99); MAGNESIUM 1.8 mg/dL (1.8-2.4); PHENY 24.7 mcg/mL (10.0-20.0); POTASSIUM 3.7 mmol/L (3.5-5.1); SODIUM 140 mmol/L (136-145); TOTAL BILIRUBIN 0.1 mg/dL (0.2-1.0); TOTAL PROTEIN 7.9 g/dL (6.4-8.2)
[2018-09-21 20:52] LABS: SEDIMENTATION RATE 9 (0-15)
[2018-09-21 20:53] LABS: INFLUENZA B PATIENT NEGATIVE (NEGATIVE)
--- NOTE | 2018-09-21 21:10 | RAD ---
CT HEAD WO CONTRAST Clinical indications: Seizure, mental status change, chest pain. COMPARISON: July 03, 2018. Technique: Noncontrast axial cross sectional scanning of the head was performed. PQRS compliance Statement One or more of the following individualized dose reduction techniques were utilized for this study: 1. Automated exposure control 2. Adjustment of the mA and/or kV according to patient size 3. Use of iterative reconstruction technique Findings: No acute intracranial hemorrhage or midline shift or mass-effect or extra-axial fluid collection is seen. The ventricles are mildly prominent but stable. There is a focal wedge-shaped hypodensity involving the posterior left frontal lobe and anterior left parietal lobe near the sylvian fissure. This is unchanged and is consistent with an old cortical infarct. Smaller similar old infarct is seen on the right side at the same level. An old lacunar infarct of the left centrum semiovale is seen. An old lacunar infarct of the tania is seen just to the left of midline. No new hypodensity is evident. Right mastoidectomy is evident. Cerumen is seen within the external auditory canal on the right side. Impression: No new intracranial abnormality is seen. Electronically signed by: Danilo Hassan MD (09/21/2018 9:07 PM) [facility]
[2018-09-21 21:28] LABS: INFLUENZA A PATIENT POSITIVE (NEGATIVE)
--- NOTE | 2018-09-21 21:29 | ED.ADGEN ---
Past History Past Medical History: Constipation, CVA, Hypertension, Seizure, Other Past Medical History Severe cerebral palsy and intellectual deficiencies. Past Surgical History: Other Alcohol Use: None Drug Use: None Adult General Chief Complaint Chief Complaint .. He had a seizure.. seem a little more confused.. he seems back to his normal baseline now...".. " But he was sticking his finger down his throat.. he does that when he does not feel well.. He has had a cold and low grade fever all week.." HPI HPI Patient is a 43 year old male who presents with severe cerebral palsy who is a resident at a penitentiary, presents with a approximate one-week of low grad fever and cough. Presents after a Tonic clonic seizure. Patient is on Dilantin. Patient has history of previous seizures even though he takes his Dilantin as directed. Pt. is a resident of [facility] . Pt. has hx of GERD. History of trauma. No history of falls. No history of change in medications. Patient did receive a flu vaccination this season. No other residents of the home are currently afebrile. Pt. felt to have moderate intellectual disabilities, Hx. HTN, Hx chronic constipation, Urinary incontinence, and Esophageal varices. Pt . follow with [facility]. Pt. has a habit of making himself vomit by sticking his finger down his throat when he feels ill. Review of Systems Review of Systems Constitutional: History of low-grade fever Eyes: Denies change in visual acuity, redness, or eye pain [] HENT: History of nasal congestion Respiratory: Denies cough or shortness of breath [] Cardiovascular: No additional information not addressed in HPI [] GI: History, nausea, vomiting, when he states his finger down his throat. No history bloody stools or diarrhea []. Has had some recent constipation. : Denies dysuria or hematuria [] Musculoskeletal: Denies back pain or joint pain [] Integument: Denies rash or skin lesions [] Neurologic: Denies headache, focal weakness or sensory changes [] Endocrine: Denies polyuria or polydipsia [] All other systems were reviewed and found to be within normal limits, except as documented in this note. Family History Family History Not currently available Current Medications Current Medications Current Medications Medications (Trade) Dose Ordered Sig/Facundo Start Time Stop Time Status Last Admin Dose Admin Lactated Ringer's 1,000 ml @ 1,000 mls/hr Q1H 09/21/18 18:41 09/21/18 19:40 DC 09/21/18 19:31 1,000 MLS/HR Levetiracetam (Keppra) 500 mg STK-MED ONCE 09/21/18 19:29 09/21/18 19:30 DC Levetiracetam 500 mg/Sodium Chloride 100 ml @ 400 mls/hr STAT STAT 09/21/18 18:50 09/21/18 19:04 DC 09/21/18 18:50 400 MLS/HR Lorazepam (Ativan) 1 mg 1X ONCE 09/21/18 19:00 09/21/18 19:01 DC 09/21/18 19:32 1 MG Magnesium Hydroxide (Milk Of Magnesia) 2,400 mg 1X ONCE 09/21/18 21:45 09/21/18 21:46 DC Sodium Chloride 100 ml @ As Directed STK-MED ONCE 09/21/18 19:29 09/21/18 19:30 DC Allergies Allergies Allergies Coded Allergies Type Severity Reaction Last Updated Verified No Known Drug Allergies 07/03/18 No NKDA Physical Exam Physical Exam Constitutional: no acute distress, non-toxic appearance. [] HENT: Normocephalic, atraumatic, bilateral external ears normal, oropharynx moist with mild injection, no oral exudates, nose swollen turbinates and clear rhinorrhea Eyes: PERRLA, EOMI, conjunctiva normal, no discharge. Terminal nystagmus. Neck: Normal range of motion, no tenderness, supple, no stridor. [] Cardiovascular:Heart rate regular rhythm, no murmur [] Lungs & Thorax: Bilateral breath sounds equal apex with few scattered wheezes auscultation [] Abdomen: Bowel sounds normal, soft, no tenderness, no masses, no pulsatile masses. Patient is distended. Appears constipated. No gross blood per rectal. Skin: Warm, dry, no erythema, no rash. [] Back: No tenderness, no CVA tenderness. [] Extremities: No tenderness, no cyanosis, no clubbing, ROM intact, no edema. [ Has severe contractures] Neurologic: Alert . Does respond to questions by shaking his head. The penitentiary staff states currently he is back to his normal motor function, normal sensory function, . And behavior. Psychologic: Affect normal, does appear to have some intellectual disabilities. , mood normal for pt. per nursing home staff. . Patient is interactive by shaking his head to questions. Current Patient Data Vital Signs Vital Signs Date Time Temp Pulse Resp B/P (MAP) Pulse Ox O2 Delivery O2 Flow Rate FiO2 09/21/18 20:19 70 18 109/65 (80) 98 Room Air 09/21/18 18:38 98.1 Lab Results Laboratory Tests Test 09/21/18 19:04 09/21/18 19:19 09/21/18 20:06 White Blood Count 5.2 x10^3/uL (4.0-11.0) Red Blood Count 4.94 x10^6/uL (4.30-5.70) Hemoglobin 14.5 g/dL (13.0-17.5) Hematocrit 44.0 % (39.0-53.0) Mean Corpuscular Volume 89 fL (79-100) Mean Corpuscular Hemoglobin 29 pg (25-35) Mean Corpuscular Hemoglobin Concent 33 g/dL (31-37) Red Cell Distribution Width 14.8 % (11.5-14.5) H Platelet Count 117 x10^3/uL (140-400) L Neutrophils (%) (Auto) 73 % (31-73) Lymphocytes (%) (Auto) 17 % (24-48) L Monocytes (%) (Auto) 11 % (0-9) H Eosinophils (%) (Auto) 0 % (0-3) Basophils (%) (Auto) 0 % (0-3) Neutrophils # (Auto) 3.8 x10^3uL (1.8-7.7) Lymphocytes # (Auto) 0.9 x10^3/uL (1.0-4.8) L Monocytes # (Auto) 0.5 x10^3/uL (0.0-1.1) Eosinophils # (Auto) 0.0 x10^3/uL (0.0-0.7) Basophils # (Auto) 0.0 x10^3/uL (0.0-0.2) Erythrocyte Sedimentation Rate 9 (0-15) Prothrombin Time 10.9 SEC (9.4-11.4) Prothrombin Time INR 1.1 (0.9-1.1) PTT 30 SEC (23-33) Sodium Level 140 mmol/L (136-145) Potassium Level 3.7 mmol/L (3.5-5.1) Chloride Level 102 mmol/L (98-107) Carbon Dioxide Level 32 mmol/L (21-32) Anion Gap 6 (6-14) Blood Urea Nitrogen 14 mg/dL (8-26) Creatinine 0.5 mg/dL (0.7-1.3) L Estimated GFR (Cockcroft-Gault) 183.2 Glucose Level 97 mg/dL (70-99) Calcium Level 8.6 mg/dL (8.5-10.1) Magnesium Level 1.8 mg/dL (1.8-2.4) Total Bilirubin 0.1 mg/dL (0.2-1.0) L Direct Bilirubin < 0.1 mg/dL (0.0-0.2) Aspartate Amino Transferase (AST) 27 U/L (15-37) Alanine Aminotransferase (ALT) 22 U/L (16-63) Alkaline Phosphatase 111 U/L (46-116) Creatine Kinase 36 U/L (39-308) L Troponin I Quantitative < 0.017 ng/mL (0-0.055) WJ-Jba-V-Type Natriuretic Peptide 84 pg/mL (0-124) Total Protein 7.9 g/dL (6.4-8.2) Albumin 3.8 g/dL (3.4-5.0) Phenytoin (Dilantin) Level 24.7 mcg/mL (10.0-20.0) H Phenytoin Last Dose Date Unknown Phenytoin Last Dose Time Unknown Urine Collection Type Unknown Urine Color Arielle Urine Clarity Hazy Urine pH 6.5 Urine Specific [place] >=1.030 Urine Protein Trace (NEG-TRACE) Urine Glucose (UA) Neg mg/dL (NEG) Urine Ketones (Stick) Neg mg/dL (NEG) Urine Blood Neg (NEG) Urine Nitrite Neg (NEG) Urine Bilirubin Neg (NEG) Urine Urobilinogen Dipstick 1 mg/dL (0.2 mg/dL) Urine Leukocyte Esterase Neg (NEG) Urine RBC 0 /HPF (0-2) Urine WBC 0 /HPF (0-4) Urine Squamous Epithelial Cells Occ /LPF Urine Bacteria 0 /HPF (0-FEW) Influenza Type A (Rapid) Positive (NEGATIVE) Influenza Type B (Rapid) Negative (NEGATIVE) Group A Streptococcus Rapid Negative (NEGATIVE) EKG EKG My interpretation EKG shows a sinus rhythm at 73 bpm. There is some nonspecific contour abnormalities. But no findings acute STEMI with contralateral changes.[] Radiology/Procedures Radiology/Procedures My interpretation of acute chest and abdomen shows no large significant pulmonary infiltrate. Is very tortuous spine and irregular chest wall. Extremities to reflect his irregular contractures. Does have nonspecific bowel gas pattern with increased gas pattern. But no free air under diaphragm. Does appear to have distal constipation .[] CT head shows bilateral wedge-shaped infarcts and frontal lobes. No obvious bleed, no shift, no masses, does not appear to have any interval change from prior CT. See formal report when available Course & Med Decision Making Course & Med Decision Making Pertinent Labs and Imaging studies reviewed. (See chart for details) Patient continue meds as previous directed. Follow-up primary care. Return if any concerns. May need enema affect no return of stooling on a regular basis. Patient however appears to have a very large stool while in the emergency department. Stool is hard. Did not appear to have any findings of obvious bleeding. Will not treat his Influ. A with Tamiflu since symptoms have been present for more than a week. Suspect breakthrough seizure [] Final Impression Final Impression 1. Seizure-felt to be breakthrough 2. Constipation[] 3. + Influ A 4. Cerebral palsy- severe 5. Moderate intellectual disabilities 6. History urinary incontinence 7. Thrombocytopenia 117 8. Dilantin level = 24.7 9. Hx. of CVA bilateral- ( No current acute changes-changes per Radiology) 10. Constipation Dragon Disclaimer Dragon Disclaimer This electronic medical record was generated, in whole or in part, using a voice recognition dictation system. Discharge Summary Visit Information Final Diagnosis Problems Medical Problems: (1) Influenza A Status: Acute (2) Seizure Status: Acute Brief Hospital Course Allergies Allergies Coded Allergies Type Severity Reaction Last Updated Verified No Known Drug Allergies 07/03/18 No Vital Signs Vital Signs Date Time Temp Pulse Resp B/P (MAP) Pulse Ox O2 Delivery O2 Flow Rate FiO2 09/21/18 20:19 70 18 109/65 (80) 98 Room Air 09/21/18 18:38 98.1 Lab Results Laboratory Tests Test 09/21/18 19:04 09/21/18 19:09/21/18 20:06 White Blood Count 5.2 x10^3/uL (4.0-11.0) Red Blood Count 4.94 x10^6/uL (4.30-5.70) Hemoglobin 14.5 g/dL (13.0-17.5) Hematocrit 44.0 % (39.0-53.0) Mean Corpuscular Volume 89 fL (79-100) Mean Corpuscular Hemoglobin 29 pg (25-35) Mean Corpuscular Hemoglobin Concent 33 g/dL (31-37) Red Cell Distribution Width 14.8 % (11.5-14.5) Platelet Count 117 x10^3/uL (140-400) Neutrophils (%) (Auto) 73 % (31-73) Lymphocytes (%) (Auto) 17 % (24-48) Monocytes (%) (Auto) 11 % (0-9) Eosinophils (%) (Auto) 0 % (0-3) Basophils (%) (Auto) 0 % (0-3) Neutrophils # (Auto) 3.8 x10^3uL (1.8-7.7) Lymphocytes # (Auto) 0.9 x10^3/uL (1.0-4.8) Monocytes # (Auto) 0.5 x10^3/uL (0.0-1.1) Eosinophils # (Auto) 0.0 x10^3/uL (0.0-0.7) Basophils # (Auto) 0.0 x10^3/uL (0.0-0.2) Erythrocyte Sedimentation Rate 9 (0-15) Prothrombin Time 10.9 SEC (9.4-11.4) Prothromb Time International Ratio 1.1 (0.9-1.1) Activated Partial Thromboplast Time 30 SEC (23-33) Sodium Level 140 mmol/L (136-145) Potassium Level 3.7 mmol/L (3.5-5.1) Chloride Level 102 mmol/L (98-107) Carbon Dioxide Level 32 mmol/L (21-32) Anion Gap 6 (6-14) Blood Urea Nitrogen 14 mg/dL (8-26) Creatinine 0.5 mg/dL (0.7-1.3) Estimated GFR (Cockcroft-Gault) 183.2 Glucose Level 97 mg/dL (70-99) Calcium Level 8.6 mg/dL (8.5-10.1) Magnesium Level 1.8 mg/dL (1.8-2.4) Total Bilirubin 0.1 mg/dL (0.2-1.0) Direct Bilirubin < 0.1 mg/dL (0.0-0.2) Aspartate Amino Transf (AST/SGOT) 27 U/L (15-37) Alanine Aminotransferase (ALT/SGPT) 22 U/L (16-63) Alkaline Phosphatase 111 U/L (46-116) Creatine Kinase 36 U/L (39-308) Troponin I Quantitative < 0.017 ng/mL (0-0.055) QV-Gpw-F-Type Natriuretic Peptide 84 pg/mL (0-124) Total Protein 7.9 g/dL (6.4-8.2) Albumin 3.8 g/dL (3.4-5.0) Phenytoin (Dilantin) Level 24.7 mcg/mL (10.0-20.0) Phenytoin Last Dose Date Unknown Phenytoin Last Dose Time Unknown Urine Collection Type Unknown Urine Color Arielle Urine Clarity Hazy Urine pH 6.5 Urine Specific [place] >=1.030 Urine Protein Trace (NEG-TRACE) Urine Glucose (UA) Neg mg/dL (NEG) Urine Ketones (Stick) Neg mg/dL (NEG) Urine Blood Neg (NEG) Urine Nitrite Neg (NEG) Urine Bilirubin Neg (NEG) Urine Urobilinogen Dipstick 1 mg/dL (0.2 mg/dL) Urine Leukocyte Esterase Neg (NEG) Urine RBC 0 /HPF (0-2) Urine WBC 0 /HPF (0-4) Urine Squamous Epithelial Cells Occ /LPF Urine Bacteria 0 /HPF (0-FEW) Influenza Type A (Rapid) Positive (NEGATIVE) Influenza Type B (Rapid) Negative (NEGATIVE) Group A Streptococcus Rapid Negative (NEGATIVE) Brief Hospital Course Mr. Gayle is a 43 old male severe cerebral palsy and seizure disorder who presented with break through seizure. Patient found to be positive for influenza A Discharge Information Condition at Discharge: Improved, Stable Disposition/Orders: D/C to Home Dischare Medications Current Medications Lactated Ringer's 1,000 ml @ 1,000 mls/hr Q1H IV Last administered on at 19:31; Admin Dose 1,000 MLS/HR; Start 09/21/18 at 18:41; Stop 09/21/18 at 19:40; Status DC Lorazepam (Ativan) 1 mg 1X ONCE IV Last administered on 09/21/18at 19:32; Admin Dose 1 MG; Start 09/21/18 at 19:00; Stop 09/21/18 at 19:01; Status DC Levetiracetam 500 mg/Sodium Chloride 100 ml @ 400 mls/hr STAT STAT IV Last administered on 09/21/18at 18:50; Admin Dose 400 MLS/HR; Start 09/21/18 at 18:50 ; Stop 09/21/18 at 19:04; Status DC Sodium Chloride 100 ml @ As Directed STK-MED ONCE .ROUTE ; Start 09/21/18 at 19 :29; Stop 09/21/18 at 19:30; Status DC Levetiracetam (Keppra) 500 mg STK-MED ONCE IV ; Start 09/21/18 at 19:29; Stop at 19:30; Status DC Magnesium Hydroxide (Milk Of Magnesia) 2,400 mg 1X ONCE GT ; Start 09/21/18 at 21:45; Stop 09/21/18 at 21:46; Status DC Active Scripts Active Zofran (Ondansetron Hcl) 8 Mg Tablet 8 Mg PO QIDPRN PRN Augmentin 500-125 Tablet (Amoxicillin/Potassium Clav) 1 Each Tablet 1 Tab PO BID 5 Days Reported Polyethylene Glycol 3350 255 Gm Powder 17 Gm PO DAILY Omeprazole 40 Mg Capsule. 1 Cap PO DAILY Dilantin (Phenytoin Sodium Extended) 100 Mg Capsule 0.75 Cap PO UD Dilantin (Phenytoin Sodium Extended) 100 Mg Capsule 0.5 Cap PO UD Senna (Sennosides) 8.6 Mg Tablet 8.6 Mg PO HS Senexon-S Tablet (Sennosides/Docusate Sodium) 1 Each Tablet 1 Each PO BID PRN Dragon Disclaimer This chart was dictated in whole or in part using Voice Recognition software in a busy, high-work load, and often noisy Emergency Department environment. It may contain unintended and wholly unrecognized errors or omissions. JOHANNY DAIZ MD Sep 21, 2018 21:29
[2018-09-21] MEDS ORDERED: ONDA8TAB9 PO (21:42)
[2018-09-21] MEDS ORDERED: MAGNESIUM HYDROXIDE 2,400 MG/30 ML ORAL.SUSP. GT ONE (21:45)
--- NOTE | 2018-09-22 06:20 | RAD ---
Indication:Nausea, vomiting, seizure activity, chest pain TECHNIQUE:Acute abdominal series COMPARISON: None FINDINGS: Heart is normal in size. Lungs are clear. No pneumothorax or pleural effusion. Visualized bony thorax is within normal limits. No pneumoperitoneum. Dilated small bowel loops are seen throughout the abdomen. Scoliotic thoracal lumbar spine. IMPRESSION: Findings suggests small bowel obstruction or ileus. Electronically signed by: Sav Morales DO (09/22/2018 6:17 AM) [facility]
== END 2018-09-21 21:52 | disposition home or self-care (01) ==
LOC: ER 18:34
DX: G40.89 Other seizures (principal); K59.00 Constipation, unspecified; J10.1 Influenza due to other identified influenza virus with other respiratory manifestations; G80.9 Cerebral palsy, unspecified; F71 Moderate intellectual disabilities; D69.6 Thrombocytopenia, unspecified; R11.2 Nausea with vomiting, unspecified; R79.89 Other specified abnormal findings of blood chemistry; I10 Essential (primary) hypertension; Z86.73 Personal history of transient ischemic attack (TIA), and cerebral infarction without residual deficits
CPT/HCPCS: 36415; 70450; 74022; 80048; 80076; 80185; 81001; 82550; 83735; 83880; 84443; 84484; 85025; 85610; 85651; 85730; 87040; 87070; 87804; 87880; 93005; 96361; 96365; 96375; 99284; J1953; J2060; J7120

== ENCOUNTER 2018-09-23 17:35 | Emergency (ER) | payer MEDICARE, OTHER ==
[~2018-09-23] VITALS: Ht 152.4 cm; Wt 44.7 kg
[~2018-09-23 17:35] MED LIST changes: +ONDA8TAB9 PO
[2018-09-23] MEDS ORDERED: ACETAMINOPHEN 500 MG TABLET PO ONE ×2 (17:43→18:00)
[2018-09-23] MEDS ORDERED: ACETAMINOPHEN 650 MG SUPP.RECT. ONE (17:47)
[2018-09-23] MEDS ORDERED: ACETAMINOPHEN 650 MG SUPP.RECT. PR ONE (18:00)
[2018-09-23] MEDS ORDERED: ONDANSETRON ODT 4 MG TAB.RAPDIS PO ONE (18:30)
[2018-09-23] MEDS ORDERED: IBUPROFEN 100 MG/5 ML ORAL.SUSP. PO ONE (19:00)
[2018-09-23] MEDS ORDERED: IV NORMAL SALINE 1,000ML 1,000 ML IV SCH (19:17)
[2018-09-23] MEDS ORDERED: IOHEXOL 300 MG/ML 75 ML VIAL. IV ONE (19:30)
[2018-09-23 19:42] LABS: BASO % 0 % (0-3); EOS % 0 % (0-3); HEMATOCRIT 42.3 % (39.0-53.0); HEMOGLOBIN 13.8 g/dL (13.0-17.5); LYMPH # 0.8 x10^3/uL (1.0-4.8); LYMPH % 11 % (24-48); MEAN CORPUSCULAR HEMOGLOBIN 30 pg (25-35); MEAN CORPUSCULAR HGB CONC 33 g/dL (31-37); MEAN CORPUSCULAR VOLUME 91 fL (79-100); MONO # 0.4 x10^3/uL (0.0-1.1); MONO % 5 % (0-9); NEUT # 6.1 x10^3uL (1.8-7.7); NEUT % 84 % (31-73); PLATELET COUNT 112 x10^3/uL (140-400); RED BLOOD COUNT 4.64 x10^6/uL (4.30-5.70); RED CELL DISTRIBUTION WIDTH 14.4 % (11.5-14.5); WHITE BLOOD COUNT 7.3 x10^3/uL (4.0-11.0)
[2018-09-23 19:51] LABS: CALCIUM 8.4 mg/dL (8.5-10.1); CREATININE 0.6 mg/dL (0.7-1.3); GFR 148.5; POTASSIUM 4.4 mmol/L (3.5-5.1)
--- NOTE | 2018-09-23 20:51 | RAD ---
EXAM: CT Abdomen and Pelvis with IV contrast CLINICAL HISTORY: Abdominal pain COMPARISON: Acute abdominal series 09/11/2018 TECHNIQUE: Helical CT of the abdomen and pelvis was performed following the administration of intravenous contrast. Axial, coronal and sagittal reformatted images were generated. PQRS compliance statement - One or more of the following individualized dose reduction techniques were utilized for this study: 1. Automated exposure control 2. Adjustment of the mA and/or kV according to patient size 3. Use of iterative reconstruction technique FINDINGS: Of note examination is mildly limited given motion artifact and streak artifact as the patient was unable to raise their arms. Lower chest: Linear opacities in the lower lobes likely scarring/atelectasis. Heart is mildly enlarged. Abdomen and Pelvis: Hepatic hypoattenuation may be seen with hepatic steatosis or be related to phase of contrast. Accounting for postcholecystectomy change, no biliary ductal dilatation. Spleen is unremarkable. Adrenal glands are normal. Pancreas is unremarkable. Symmetric nephrograms. No focal renal lesion. No hydronephrosis. Moderate to large volume colonic stool content is seen throughout the abdomen. No small or large bowel dilatation to suggest bowel obstruction. The appendix is not convincingly seen. Bladder wall thickening seen. No abdominal or pelvic ascites. No abdominal or pelvic lymphadenopathy by size criteria. Bones: S-shaped curvature of the lumbar spine. IMPRESSION: 1. Thickening of the bladder wall, nonspecific but may be seen with cystitis. 2. Moderate to large volume colonic stool content is seen. No evidence for bowel obstruction. 3. Electronically signed by: Fortino Herman MD (09/23/2018 8:48 PM) [facility]
--- NOTE | 2018-09-23 21:12 | PHYS DOC ---
Past History Past Medical History: Constipation, CVA, Hypertension, Seizure, Other Past Surgical History: Other Alcohol Use: None Drug Use: None Adult General Chief Complaint Chief Complaint: Influenza HPI HPI Patient is a 43-year-old male who presents via EMS with reports of continued fever after recently being diagnosed with influenza. Patient had been seen at this facility 2 days ago and was diagnosed with influenza A and discharge back to facility. Facility reportedly has not been giving patient any Tylenol for his fever because he reportedly sticks his fingers down his mouth and gags himself. Patient's temperature upon arrival was 104.2 rectal. Additional history is limited as patient is nonverbal. Review of Systems Review of Systems Constitutional: Positive fever[] Respiratory: Positive cough without shortness of breath [] Cardiovascular: No additional information not addressed in HPI [] GI: No report of vomiting or diarrhea [] Unable to fully assess review of systems as patient is nonverbal. Current Medications Current Medications Current Medications Medications (Trade) Dose Ordered Sig/Facundo Start Time Stop Time Status Last Admin Dose Admin Acetaminophen (Tylenol Supp) 650 mg 1X ONCE 09/23/18 18:00 09/23/18 18:01 DC 09/23/18 18:45 650 MG Acetaminophen (Tylenol) 1,000 mg 1X ONCE 09/23/18 18:00 09/23/18 18:00 DC Ibuprofen (Motrin) 500 mg 1X ONCE 09/23/18 19:00 09/23/18 19:01 DC 09/23/18 18:59 500 MG Iohexol (Omnipaque 300 Mg/ml) 75 ml 1X ONCE 09/23/18 19:30 09/23/18 19:31 DC 09/23/18 19:59 75 ML Ondansetron HCl (Zofran Odt) 4 mg 1X ONCE 09/23/18 18:30 09/23/18 18:31 DC 09/23/18 18:44 4 MG Sodium Chloride 1,000 ml @ 1,000 mls/hr Q1H 09/23/18 19:17 09/23/18 20:17 DC 09/23/18 20:01 1,000 MLS/HR Allergies Allergies Allergies Coded Allergies Type Severity Reaction Last Updated Verified No Known Drug Allergies 07/03/18 No Physical Exam Physical Exam Constitutional: Well developed, well nourished, no acute distress, non-toxic appearance. [] HENT: Normocephalic, atraumatic, bilateral external ears normal, oropharynx moist, no oral exudates, nose normal. [] Eyes: PERRLA, EOMI, conjunctiva normal, no discharge. [] Neck: Normal range of motion, no tenderness, supple, no stridor. [] Cardiovascular:Heart rate regular rhythm, no murmur [] Lungs & Thorax: Bilateral breath sounds clear to auscultation [] Abdomen: Bowel sounds normal, soft, no tenderness, no masses, no pulsatile masses. [] Skin: Warm, dry, no erythema, no rash. [] Back: No tenderness, no CVA tenderness. [] Extremities: No tenderness, no cyanosis, no clubbing, ROM intact, no edema. [] Neurologic: Alert and oriented X 3, normal motor function, normal sensory function, no focal deficits noted. [] Psychologic: Affect normal, judgement normal, mood normal. [] Current Patient Data Vital Signs Vital Signs Date Time Temp Pulse Resp B/P (MAP) Pulse Ox O2 Delivery O2 Flow Rate FiO2 09/23/18 18:49 104.5 09/23/18 18:39 72 16 107/77 (87) 96 Room Air Lab Results Laboratory Tests Test 09/23/18 19:24 White Blood Count 7.3 x10^3/uL (4.0-11.0) Red Blood Count 4.64 x10^6/uL (4.30-5.70) Hemoglobin 13.8 g/dL (13.0-17.5) Hematocrit 42.3 % (39.0-53.0) Mean Corpuscular Volume 91 fL (79-100) Mean Corpuscular Hemoglobin 30 pg (25-35) Mean Corpuscular Hemoglobin Concent 33 g/dL (31-37) Red Cell Distribution Width 14.4 % (11.5-14.5) Platelet Count 112 x10^3/uL (140-400) L Neutrophils (%) (Auto) 84 % (31-73) H Lymphocytes (%) (Auto) 11 % (24-48) L Monocytes (%) (Auto) 5 % (0-9) Eosinophils (%) (Auto) 0 % (0-3) Basophils (%) (Auto) 0 % (0-3) Neutrophils # (Auto) 6.1 x10^3uL (1.8-7.7) Lymphocytes # (Auto) 0.8 x10^3/uL (1.0-4.8) L Monocytes # (Auto) 0.4 x10^3/uL (0.0-1.1) Eosinophils # (Auto) 0.0 x10^3/uL (0.0-0.7) Basophils # (Auto) 0.0 x10^3/uL (0.0-0.2) Sodium Level 139 mmol/L (136-145) Potassium Level 4.4 mmol/L (3.5-5.1) Chloride Level 101 mmol/L (98-107) Carbon Dioxide Level 29 mmol/L (21-32) Anion Gap 9 (6-14) Blood Urea Nitrogen 13 mg/dL (8-26) Creatinine 0.6 mg/dL (0.7-1.3) L Estimated GFR (Cockcroft-Gault) 148.5 Glucose Level 133 mg/dL (70-99) H Calcium Level 8.4 mg/dL (8.5-10.1) L EKG EKG [] Radiology/Procedures Radiology/Procedures [] Impressions: PROCEDURE: CT ABD PELV W/ IV CONTRST ONLY EXAM: CT Abdomen and Pelvis with IV contrast CLINICAL HISTORY: Abdominal pain COMPARISON: Acute abdominal series 09/11/2018 TECHNIQUE: Helical CT of the abdomen and pelvis was performed following the administration of intravenous contrast. Axial, coronal and sagittal reformatted images were generated. PQRS compliance statement - One or more of the following individualized dose reduction techniques were utilized for this study: 1. Automated exposure control 2. Adjustment of the mA and/or kV according to patient size 3. Use of iterative reconstruction technique FINDINGS: Of note examination is mildly limited given motion artifact and streak artifact as the patient was unable to raise their arms. Lower chest: Linear opacities in the lower lobes likely scarring/atelectasis. Heart is mildly enlarged. Abdomen and Pelvis: Hepatic hypoattenuation may be seen with hepatic steatosis or be related to phase of contrast. Accounting for postcholecystectomy change, no biliary ductal dilatation. Spleen is unremarkable. Adrenal glands are normal. Pancreas is unremarkable. Symmetric nephrograms. No focal renal lesion. No hydronephrosis. Moderate to large volume colonic stool content is seen throughout the abdomen. No small or large bowel dilatation to suggest bowel obstruction. The appendix is not convincingly seen. Bladder wall thickening seen. No abdominal or pelvic ascites. No abdominal or pelvic lymphadenopathy by size criteria. Bones: S-shaped curvature of the lumbar spine. IMPRESSION: 1. Thickening of the bladder wall, nonspecific but may be seen with cystitis. 2. Moderate to large volume colonic stool content is seen. No evidence for bowel obstruction. 3. Electronically signed by: Fortino Herman MD (09/23/2018 8:48 PM) [facility] Course & Med Decision Making Course & Med Decision Making Pertinent Labs and Imaging studies reviewed. (See chart for details) Upon patient arrival, patient evaluated and given by mouth Tylenol for fever. Medical record from patient's visit on Wednesday was reviewed and upon reviewing abdominal series that was completed, radiologist interpretation was that of possible ileus versus small bowel obstruction. At this point blood work and a CT of the abdomen and pelvis with IV contrast was performed. Patient's workup is returned unremarkable. Patient was additionally given a dose of by mouth ibuprofen and temperature rechecked with findings of 100.1 rectal. Patient discharged back to facility with prescription for ibuprofen liquid. Dragon Disclaimer Dragon Disclaimer This electronic medical record was generated, in whole or in part, using a voice recognition dictation system. Departure Departure: Impression: Primary Impression: Influenza A Additional Impressions: Fever Constipation Disposition: 01 HOME, SELF-CARE Condition: STABLE Referrals: JANIEC MATHEW (PCP) Patient Instructions: Constipation, Adult, Fever, Influenza, Adult Scripts Ibuprofen (IBUPROFEN) 100 Mg/5 Ml Oral.susp 15 ML PO PRN Q6-8HRS PRN for fever, #240 ML Prov: MELISA HARDIN Jr. DO 09/23/18 Problem Qualifiers Additional Impressions: Fever Fever type: unspecified Qualified Codes: R50.9 - Fever, unspecified Constipation Constipation type: unspecified constipation type Qualified Codes: K59.00 - Constipation, unspecified MELISA HARDIN Jr. DO Sep 23, 2018 21:12
[2018-09-23] MEDS ORDERED: IBUP100O25 PO (21:18)
[2018-09-23 21:30] VITALS: BP 104/60
== END 2018-09-23 22:03 | disposition home or self-care (01) ==
LOC: ER 17:35
DX: J10.1 Influenza due to other identified influenza virus with other respiratory manifestations (principal); K59.00 Constipation, unspecified; I10 Essential (primary) hypertension; Z86.73 Personal history of transient ischemic attack (TIA), and cerebral infarction without residual deficits
CPT/HCPCS: 36415; 74177; 80048; 85025; 99284; Q0162; Q9967; J7030

== ENCOUNTER 2019-04-22 19:56 | Inpatient (IN) | payer MEDICARE, OTHER ==
[~2019-04-22] VITALS: Ht 152.4 cm; Wt 51.9 kg
[~2019-04-22 19:56] MED LIST changes: +IBUP100O25 PO; +OMEP40CA45 PO; -OMEP40CA5 PO
--- NOTE | 2019-04-22 20:12 | ED.ADGEN ---
Past History Past Medical History: Constipation, CVA, Hypertension, Seizure, Other Past Medical History Cerebral palsy, intellectual deficits Past Surgical History: Other Alcohol Use: None Drug Use: None Adult General Chief Complaint Chief Complaint ".. He got stuff coming out both ends.. vomiting and diarrhea.. his room mate is also sick.. .. His room mate got sick yesterday.. Antonino only been sick today... " .. This is not him.. ".. " He was okay yesterday..." Medicare Coordinator HPI HPI Patient is a 44 year old male cerebral palsy pt. who presents with above hx and complaints nauseas, vomiting, diarrhea, malaise, weakness and fever. [facility]. [facility] a [facility]. His current room mate recently developed episodes of nausea and vomiting and diarrhea. There are no other significant illnesses in the prison at this time other than his room mate complaints. Patient has been ill only last 24 hours. Patient poorly up-to-date with vaccinations. No history of bad food. . 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 Patient has been taking his meds as previously directed. Patient normally follows with Dr. Mathew. Review of Systems Review of Systems Hx. per healthcare representative Constitutional: History of fever or chills [] Eyes: Denies change in visual acuity, redness, or eye pain [] HENT: Denies nasal congestion or sore throat [] Respiratory: Denies cough or shortness of breath [] Cardiovascular: No additional information not addressed in HPI [] GI: History of epigastric abdominal pain, nausea, vomiting, and diarrhea diarrhea [] : Denies dysuria or hematuria [] Musculoskeletal: Denies back pain or joint pain [] Integument: Denies rash or skin lesions [] Neurologic: Denies headache, focal weakness or sensory changes [] Endocrine: Denies polyuria or polydipsia [] All other systems were reviewed and found to be within normal limits, except as documented in this note. Family History Family History Not currently available Current Medications Current Medications Current Medications Medications (Trade) Dose Ordered Sig/Facundo Start Time Stop Time Status Last Admin Dose Admin Ceftriaxone Sodium 1 gm/ Sodium Chloride 50 ml @ 100 mls/hr DAILY 04/23/19 09:00 Famotidine (Pepcid Vial) 20 mg BID 04/23/19 09:00 Fosphenytoin Sodium 910 mg/ Sodium Chloride 68.2 ml @ 272.8 mls/ hr 1X ONCE 04/23/19 06:00 04/23/19 06:14 DC Info (Do NOT chart on this entry -- for MONITORING) 1 each PRN DAILY PRN 04/22/19 23:15 04/24/19 23:14 Iohexol (Omnipaque 240 Mg/ml) 50 ml 1X ONCE 04/22/19 23:45 04/22/19 23:46 DC 04/23/19 01:13 50 ML Iohexol (Omnipaque 300 Mg/ml) 75 ml 1X ONCE 04/22/19 23:30 04/22/19 23:31 DC 04/23/19 02:53 75 ML Ketorolac Tromethamine (Toradol 30mg Vial) 30 mg 1X ONCE 04/22/19 20:15 04/22/19 20:20 DC 04/22/19 21:42 30 MG Lactated Ringer's 1,000 ml @ 200 mls/hr Q5H 04/23/19 05:15 04/24/19 05:14 Levofloxacin/ Dextrose 100 ml @ 100 mls/hr 1X ONCE 04/22/19 22:30 04/22/19 23:29 DC 04/22/19 23:25 100 MLS/HR Lorazepam (Ativan Inj) 2 mg 1X PRN PRN 04/23/19 05:15 Metronidazole 100 ml @ 100 mls/hr Q8HRS 04/23/19 06:00 Morphine Sulfate (Morphine 10mg Syringe) 5 mg QIDPRN PRN 04/23/19 05:15 04/24/19 05:14 Ondansetron HCl (Zofran) 4 mg PRN Q4HRS PRN 04/23/19 05:15 04/24/19 05:14 Sodium Biphosphate/ Sodium Phosphate (Fleet Adult) 133 ml 1X ONCE 04/23/19 06:00 04/23/19 06:01 DC Sodium Chloride 250 ml @ As Directed STK-MED ONCE 04/23/19 00:44 04/23/19 00:45 DC Vancomycin HCl (Vancomycin) 1 gm STK-MED ONCE 04/23/19 00:45 04/23/19 00:45 DC Vancomycin HCl 1 gm/Sodium Chloride 250 ml @ 250 mls/hr 1X ONCE 04/22/19 22:30 04/22/19 23:29 DC 04/23/19 01:13 250 MLS/HR Allergies Allergies Allergies Coded Allergies Type Severity Reaction Last Updated Verified No Known Drug Allergies 04/22/19 No Physical Exam Physical Exam Constitutional: In acute distress, ill in appearance. [] HENT: Normocephalic, atraumatic, bilateral external ears normal, oropharynx ivelisse st dry, no oral exudates, nose normal. [] Eyes: PERRLA, EOMI, conjunctiva normal, no discharge. [] Neck: Normal range of motion, no tenderness, supple, no stridor. [] Cardiovascular: Bradycardia Heart rate regular rhythm, no murmur []PMI to left Lungs & Thorax: Bilateral breath sounds equal at apex with scattered wheezes on auscultation [] Abdomen: Bowel sounds hyperactive,, soft, epigastric tenderness, no masses, no pulsatile masses. [] Tympanic over upper abd. Rebound to epigastric area. Skin: Warm, dry, no erythema, no rash. [] Poor turgor Back: No tenderness, no CVA tenderness. []Marked kyphosis and scoliosis. 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 Patient usually much more active and interactive.- per healthcare representative. Psychologic: Affect anxious, judgement obviously impaired, mood depressed Current Patient Data Vital Signs Vital Signs Date Time Temp Pulse Resp B/P (MAP) Pulse Ox O2 Delivery O2 Flow Rate FiO2 04/23/19 01:10 56 18 150/77 (101) 96 Room Air 04/22/19 20:00 98.8 Lab Results Laboratory Tests Test 04/22/19 20:45 04/22/19 22:20 04/22/19 22:25 04/23/19 00:40 White Blood Count 12.5 x10^3/uL (4.0-11.0) H Red Blood Count 5.16 x10^6/uL (4.30-5.70) Hemoglobin 15.2 g/dL (13.0-17.5) Hematocrit 47.4 % (39.0-53.0) Mean Corpuscular Volume 92 fL (79-100) Mean Corpuscular Hemoglobin 30 pg (25-35) Mean Corpuscular Hemoglobin Concent 32 g/dL (31-37) Red Cell Distribution Width 14.0 % (11.5-14.5) Platelet Count 159 x10^3/uL (140-400) Neutrophils (%) (Auto) 90 % (31-73) H Lymphocytes (%) (Auto) 7 % (24-48) L Monocytes (%) (Auto) 3 % (0-9) Eosinophils (%) (Auto) 0 % (0-3) Basophils (%) (Auto) 0 % (0-3) Neutrophils # (Auto) 11.3 x10^3uL (1.8-7.7) H Lymphocytes # (Auto) 0.8 x10^3/uL (1.0-4.8) L Monocytes # (Auto) 0.4 x10^3/uL (0.0-1.1) Eosinophils # (Auto) 0.0 x10^3/uL (0.0-0.7) Basophils # (Auto) 0.0 x10^3/uL (0.0-0.2) Prothrombin Time 10.4 SEC (9.4-11.4) Prothrombin Time INR 1.0 (0.9-1.1) Activated Partial Thromboplast Time 23 SEC (23-33) Sodium Level 140 mmol/L (136-145) Potassium Level 3.6 mmol/L (3.5-5.1) Chloride Level 97 mmol/L (98-107) L Carbon Dioxide Level 31 mmol/L (21-32) Anion Gap 12 (6-14) Blood Urea Nitrogen 12 mg/dL (8-26) Creatinine 0.8 mg/dL (0.7-1.3) Estimated GFR (Cockcroft-Gault) 106.0 Glucose Level 181 mg/dL (70-99) H Lactic Acid Level 4.1 mmol/L (0.4-2.0) *H 7.6 mmol/L (0.4-2.0) *H Calcium Level 9.3 mg/dL (8.5-10.1) Total Bilirubin 0.2 mg/dL (0.2-1.0) Direct Bilirubin 0.1 mg/dL (0.0-0.2) Aspartate Amino Transferase (AST) 28 U/L (15-37) Alanine Aminotransferase (ALT) 26 U/L (16-63) Alkaline Phosphatase 148 U/L (46-116) H Creatine Kinase 77 U/L (39-308) Troponin I Quantitative < 0.017 ng/mL (0-0.055) Total Protein 8.8 g/dL (6.4-8.2) H Albumin 4.3 g/dL (3.4-5.0) Amylase Level 130 U/L (25-115) H Lipase 71 U/L (73-393) L Phenytoin (Dilantin) Level 18.2 mcg/mL (10.0-20.0) Phenytoin Last Dose Date 05/22/11 Phenytoin Last Dose Time 1111 Urine Collection Type U cath Urine Color Straw Urine Clarity Hazy Urine pH 7.5 Urine Specific [place] 1.020 Urine Protein Neg (NEG-TRACE) Urine Glucose (UA) 250 mg/dL (NEG) Urine Ketones (Stick) Neg mg/dL (NEG) Urine Blood Mod (NEG) Urine Nitrite Neg (NEG) Urine Bilirubin Neg (NEG) Urine Urobilinogen Dipstick 0.2 mg/dL (0.2 mg/dL) Urine Leukocyte Esterase Neg (NEG) Urine RBC 6-10 /HPF (0-2) Urine WBC 1-4 /HPF (0-4) Urine Squamous Epithelial Cells Occ /LPF Urine Amorphous Sediment Present /HPF Urine Bacteria 0 /HPF (0-FEW) Urine Opiates Screen Neg (NEG) Urine Methadone Screen Neg (NEG) Urine Barbiturates Neg (NEG) Urine Phencyclidine Screen Neg (NEG) Urine Amphetamine/Methamphetamine Neg (NEG) Urine Benzodiazepines Screen Neg (NEG) Urine Cocaine Screen Neg (NEG) Urine Cannabinoids Screen Neg (NEG) Urine Ethyl Alcohol Neg (NEG) Influenza Type A (Rapid) Negative (NEGATIVE) Influenza Type B (Rapid) Negative (NEGATIVE) EKG EKG My interpretation EKG shows a sinus bradycardia at 53 bpm. Does have a hyperdynamic QRSs in chest leads[] Radiology/Procedures Radiology/Procedures [][address] [address] IMAGING REPORT Signed PATIENT: ANTONINO CAMPBELL ACCOUNT: [id number] : 1975 LOCATION: ER AGE: 44 SEX: M EXAM STATUS: REG ER ORD. PHYSICIAN: JOHANNY DIAZ MD REASON: Nausea, vomiting,pain. Pt unable to follow breathing instructions PROCEDURE: ACUTE ABDOMEN SERIES ACUTE ABDOMEN SERIES History: Nausea, vomiting, pain Comparison: September 21, 2018 Findings: Single view of the chest, supine AP portable view of the abdomen, single semiupright AP portable view of the abdomen are submitted. There is no new lobar consolidation, pleural fluid, pneumothorax. Pericardial cardiac silhouette is again enlarged. There is unchanged fullness of the right hilar region. There is S-shaped scoliosis of the thoracolumbar spine. No free air is identified. No gas dilated bowel is identified. Impression: 1. No acute radiographic abnormality is identified. 2. There is again enlargement of the pericardial cardiac silhouette. Electronically signed by: Kostas Sanders MD (04/22/2019 9:27 PM) [facility] DICTATED AND SIGNED BY: KOSTAS SANDERS MD DATE: 04/22/192126 CC: JOHANNY DIAZ MD; [address] [place] [address] IMAGING REPORT Signed PATIENT: ANTONINO CAMPBELL ACCOUNT: [id number] : 1975 LOCATION: ER AGE: 44 SEX: M EXAM STATUS: REG ER ORD. PHYSICIAN: JOHANNY DIAZ MD REASON: Omni 300,75ml IV.N/V, Abd pain, elev lipase,amylase PROCEDURE: CT ABD PELV W/ORAL&IV CONTRAST CT abdomen and pelvis with contrast: Reason for examination: Abdominal pain with nausea and vomiting. Elevated lipase and amylase. Helical images were obtained through the abdomen and pelvis with intravenous administration of 75 cc Omnipaque 300. Reconstruction was performed in sagittal and coronal planes. Exposure: One or more of the following individualized dose reduction techniques were utilized for this examination: 1. Automated exposure control 2. Adjustment of the mA and/or kV according to patient size 3. Use of iterative reconstruction technique. The lung bases show no consolidated infiltrates or pleural effusions. The heart size is upper normal with no pericardial effusion. No abnormality seen at the liver, spleen, adrenal glands, pancreas or gallbladder. The kidneys show no renal masses or renal calculi. The renal pelves are mildly prominent bilaterally and symmetrically but no obstructive uropathy is evident. There is no evidence of diverticulosis or diverticulitis. There is no colitis. The small intestinal tract shows no abnormal dilatation. A NG-tube is present with the tip in the stomach there appears be contrast layering in the stomach and the stomach is distended with air but no wall thickening is seen. There is some narrowing of the lumen in the duodenum with wall thickening. Partial obstruction cannot be excluded. No abnormality seen at the bladder, prostate gland or seminal vesicles. No free fluid or free air is seen in the abdomen or pelvis. IMPRESSION: Gastric distention with air and contrast fluid level but no wall thickening. Thickened wall with narrowed lumen in the duodenum. Partial obstruction cannot be excluded. Prominent renal pelves bilaterally but no apparent obstructive uropathy. Electronically signed by: Amber See MD (04/23/2019 4:45 AM) [facility] DICTATED AND SIGNED BY: AMBER SEE MD DATE: 04/23/19 0445 CC: JOHANNY DIAZ MD; JANICE MATHEW ~ Course & Med Decision Making Course & Med Decision Making Pertinent Labs and Imaging studies reviewed. (See chart for details) Discussed presentation, testing and treatment plan with . Will admit for further evaluation . Will cover for sepsis antibiotics and fluids ordered. [] Final Impression Final Impression 1. Nausea, Vomiting and Diarrhea. 2. Epigastric Abdomen Pain 3. Fever[] 4. Leukocytosis 12.5 5. History of cerebral palsy- with severe contractures 6. Intellectual deficits 7. Leukocytosis 12.5 8. DM glucose 181 9. Elevated Amylase and low Lipase 130/71- Pancreatitis, gastritis, early ileus? 10. Seizure Disorder- Dilantin Therapeutic 18. 2 11. Elevated Lactic Acid 4.1- 7.6 12. Bradycardia Dragon Disclaimer Dragon Disclaimer This electronic medical record was generated, in whole or in part, using a voice recognition dictation system. Dragon Disclaimer This chart was dictated in whole or in part using Voice Recognition software in a busy, high-work load, and often noisy Emergency Department environment. It may contain unintended and wholly unrecognized errors or omissions. Dragon Disclaimer This chart was dictated in whole or in part using Voice Recognition software in a busy, high-work load, and often noisy Emergency Department environment. It may contain unintended and wholly unrecognized errors or omissions. Dragon Disclaimer This chart was dictated in whole or in part using Voice Recognition software in a busy, high-work load, and often noisy Emergency Department environment. It may contain unintended and wholly unrecognized errors or omissions. JOHANNY DIAZ MD Apr 22, 2019 20:12
[2019-04-22] MEDS ORDERED: IV RINGERS SOLUTION,LACTATED 1,000 ML IV SCH (20:13)
[2019-04-22] MEDS ORDERED: ONDANSETRON PF 4 MG/2 ML VIAL. IVP ONE (20:15)
[2019-04-22] MEDS ORDERED: FAMOTIDINE 20 MG/2 ML VIAL IVP ONE (20:15)
[2019-04-22] MEDS ORDERED: KETOROLAC 30 MG/ML VIAL. IVP ONE (20:15)
[2019-04-22 21:07] LABS: BASO % 0 % (0-3); EOS % 0 % (0-3); HEMATOCRIT 47.4 % (39.0-53.0); HEMOGLOBIN 15.2 g/dL (13.0-17.5); LYMPH # 0.8 x10^3/uL (1.0-4.8); LYMPH % 7 % (24-48); MEAN CORPUSCULAR HEMOGLOBIN 30 pg (25-35); MEAN CORPUSCULAR HGB CONC 32 g/dL (31-37); MEAN CORPUSCULAR VOLUME 92 fL (79-100); MONO # 0.4 x10^3/uL (0.0-1.1); MONO % 3 % (0-9); NEUT # 11.3 x10^3uL (1.8-7.7); NEUT % 90 % (31-73); PLATELET COUNT 159 x10^3/uL (140-400); RED BLOOD COUNT 5.16 x10^6/uL (4.30-5.70); WHITE BLOOD COUNT 12.5 x10^3/uL (4.0-11.0)
[2019-04-22 21:22] LABS: ALBUMIN 4.3 g/dL (3.4-5.0); CALCIUM 9.3 mg/dL (8.5-10.1); CREATININE 0.8 mg/dL (0.7-1.3); DIRECT BILIRUBIN 0.1 mg/dL (0.0-0.2); POTASSIUM 3.6 mmol/L (3.5-5.1); TOTAL BILIRUBIN 0.2 mg/dL (0.2-1.0); TOTAL PROTEIN 8.8 g/dL (6.4-8.2)
--- NOTE | 2019-04-22 21:30 | RAD ---
ACUTE ABDOMEN SERIES History: Nausea, vomiting, pain Comparison: September 21, 2018 Findings: Single view of the chest, supine AP portable view of the abdomen, single semiupright AP portable view of the abdomen are submitted. There is no new lobar consolidation, pleural fluid, pneumothorax. Pericardial cardiac silhouette is again enlarged. There is unchanged fullness of the right hilar region. There is S-shaped scoliosis of the thoracolumbar spine. No free air is identified. No gas dilated bowel is identified. Impression: 1. No acute radiographic abnormality is identified. 2. There is again enlargement of the pericardial cardiac silhouette. Electronically signed by: Eliezer Sanders MD (04/22/2019 9:27 PM) [facility]
--- NOTE | 2019-04-22 21:40 | EKG ---
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
[2019-04-22 22:03] LABS: PHENY 18.2 mcg/mL (10.0-20.0)
[2019-04-22] MEDS ORDERED: VANCOMYCIN 1 GM in IV NORMAL SALINE 250ML 250 ML IV ONE (22:30)
[2019-04-22] MEDS ORDERED: IV RINGERS SOLUTION,LACTATED 1,000 ML IV ONE (22:30)
[2019-04-22 22:58] LABS: BILIRUBIN,URINE NEG (NEG); CLARITY,URINE HAZY; COLOR,URINE STRAW; GLUCOSE,URINE 250 mg/dL (NEG)
[2019-04-22 22:59] LABS: AMORPHOUS SEDIMENT,UR PRESENT /HPF; BACTERIA,URINE 0 /HPF (0-FEW); NITRITE,URINE NEG (NEG); SQUAMOUS EPITHELIAL CELL,UR OCC /LPF; UROBILINOGEN,URINE 0.2 mg/dL (0.2 mg/dL)
[2019-04-22 23:04] LABS: BARBITURATES NEG (NEG); BENZODIAZEPINES NEG (NEG); CANNABINOIDS NEG (NEG); COCAINE NEG (NEG); METHADONE NEG (NEG); OPIATES NEG (NEG); PHENCYCLIDINE NEG (NEG)
[2019-04-22 23:05] LABS: AMPHETAMINE/METHAMPHETAMINE NEG (NEG)
[2019-04-22 23:10] LABS: INFLUENZA A PATIENT NEGATIVE (NEGATIVE); INFLUENZA B PATIENT NEGATIVE (NEGATIVE)
[2019-04-22] MEDS ORDERED: CONTRAST GIVEN MC PRN (23:15)
[2019-04-22] MEDS ORDERED: IOHEXOL 300 MG/ML 75 ML VIAL. IT ONE (23:30)
[2019-04-22] MEDS ORDERED: IOHEXOL 240 MG/ML 50ML VIAL. IV ONE (23:45)
[2019-04-23] MEDS ORDERED: IV NORMAL SALINE 250ML 250 ML ONE ×2 (00:35→00:44)
[2019-04-23] MEDS ORDERED: VANCOMYCIN 1 GM VIAL. ONE ×2 (00:36→00:45)
[2019-04-23] MEDS ORDERED: IV RINGERS SOLUTION,LACTATED 1,000 ML IV ONE (01:30)
--- NOTE | 2019-04-23 04:48 | RAD ---
CT abdomen and pelvis with contrast: Reason for examination: Abdominal pain with nausea and vomiting. Elevated lipase and amylase. Helical images were obtained through the abdomen and pelvis with intravenous administration of 75 cc Omnipaque 300. Reconstruction was performed in sagittal and coronal planes. Exposure: One or more of the following individualized dose reduction techniques were utilized for this examination: 1. Automated exposure control 2. Adjustment of the mA and/or kV according to patient size 3. Use of iterative reconstruction technique. The lung bases show no consolidated infiltrates or pleural effusions. The heart size is upper normal with no pericardial effusion. No abnormality seen at the liver, spleen, adrenal glands, pancreas or gallbladder. The kidneys show no renal masses or renal calculi. The renal pelves are mildly prominent bilaterally and symmetrically but no obstructive uropathy is evident. There is no evidence of diverticulosis or diverticulitis. There is no colitis. The small intestinal tract shows no abnormal dilatation. A NG-tube is present with the tip in the stomach there appears be contrast layering in the stomach and the stomach is distended with air but no wall thickening is seen. There is some narrowing of the lumen in the duodenum with wall thickening. Partial obstruction cannot be excluded. No abnormality seen at the bladder, prostate gland or seminal vesicles. No free fluid or free air is seen in the abdomen or pelvis. IMPRESSION: Gastric distention with air and contrast fluid level but no wall thickening. Thickened wall with narrowed lumen in the duodenum. Partial obstruction cannot be excluded. Prominent renal pelves bilaterally but no apparent obstructive uropathy. Electronically signed by: Catia Steven MD (04/23/2019 4:45 AM) [facility]
[2019-04-23] MEDS ORDERED: MORPHINE SULFATE 10 MG/ML SYRINGE. SQ PRN (05:15)
[2019-04-23] MEDS ORDERED: ONDANSETRON PF 4 MG/2 ML VIAL. IV PRN (05:15)
[2019-04-23] MEDS ORDERED: FOSPHENYTOIN IV ONE ×2 (06:00→10:30)
[2019-04-23] MEDS ORDERED: NORMAL SALINE IV ONE ×2 (06:00→10:30)
[2019-04-23] MEDS ORDERED: SODIUM PHOSPHATES 19/7GM 133 ML ENEMA. PR ONE (06:00)
[2019-04-23 08:36] VITALS: BP 152/80
[2019-04-23] MEDS: IV RINGERS SOLUTION,LACTATED 1,000 ML IV SCH ×3 (10:15→14:33)
[2019-04-23] MEDS: FAMOTIDINE 20 MG/2 ML VIAL IVP SCH ×2 (10:27→20:30)
[2019-04-23 10:59] VITALS: BP 170/83
[2019-04-23] MEDS ORDERED: PHEN100C PO (11:14)
[2019-04-23 13:22] LABS: ALBUMIN 3.4 g/dL (3.4-5.0); ALBUMIN/GLOBULIN RATIO 0.8 (1.0-1.7); CALCIUM 8.7 mg/dL (8.5-10.1); CREATININE 0.5 mg/dL (0.7-1.3); GFR 182.3; POTASSIUM 3.3 mmol/L (3.5-5.1); TOTAL BILIRUBIN 0.2 mg/dL (0.2-1.0); TOTAL PROTEIN 7.7 g/dL (6.4-8.2)
[2019-04-23] MEDS ORDERED: POTASSIUM CL 40MEQ D5-0.45NACL 1,000 ML IV SCH (15:15)
--- NOTE | 2019-04-23 16:09 | HP ---
ADMIT DATE: 04/23/2019 HISTORY OF PRESENT ILLNESS: The patient is a 44-year-old male patient, a long term resident who was brought with a complaint of having recurrent bouts of nausea, vomiting as well as diarrhea. Apparently, his roommate got sick yesterday and he started having these symptoms today. He also has malaise, weakness, and fever. His roommate developed episodes of nausea, vomiting, and diarrhea. There are no other significant illnesses in the long term at this time other than his roommate. The patient has been ill only for the last 24 hours. The patient is poorly up-to-date with vaccination. No history of bad food. 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 He has been taking his medication as previously directed. He was extensively investigated in the Emergency Room and his lab work showed that he has lactic acidosis where lactic acid initially was 4.1 that has risen further to 7.6; however, his serum amylase and lipase was normal. He has mild leukocytosis with a white cell count of 12,500. His urinalysis was essentially unremarkable. Toxic screen was negative except that his phenytoin level was, if anything, the upper limit of normal. He has had acute abdomen series, which basically showed there is no new lobar consolidation, pleural fluid, or pneumothorax. Pericardial cardiac silhouette is again enlarged. There is unchanged fullness of the right hilar region. There is an S-shaped scoliosis of the thoracolumbar spine. No free air is identified. No gas dilated bowel is identified. He did have a CT scan of the abdomen and pelvis for recurrent bouts of nausea, vomiting, and elevated lipase and amylase, and the CT scan of the abdomen and pelvis showed that the patient has gastric distention with air and contrast fluid level, but no wall thickening, thickened wall with narrowed lumen in the duodenum. Partial obstruction cannot be excluded. Prominent renal pelvis bilaterally, but no apparent obstructive uropathy. The patient has had an NG tube, through which the contrast was injected. He was started on IV fluid, IV Dilantin, Zofran, as well as IV Rocephin and Flagyl. PAST MEDICAL HISTORY: Significant for cerebral palsy and seizure disorder. He has some form of congenital heart disease, although I do not have any specific information about that. He is also known to have severe esophagitis and cognitive impairment. PAST SURGICAL HISTORY: Significant for right great toe amputation done about 12 months ago. Apparently, he has had an echocardiogram done in 2015. At that time, it showed that his left ventricular function is normal with ejection fraction within normal limit. FAMILY HISTORY: His mother is . His father is . His grandmother used to be his hardwood floor finisher and was his DPOA. His aunt now takes care of his financial affairs, but she is not his DPOA. SOCIAL HISTORY: He apparently does not smoke, drink alcohol, or use recreational drugs. He is single, never , has no children. ALLERGIES: He has no known drug allergies. MEDICATIONS: He is currently on following medications: He is on ____ Dilantin, he takes 0.75 mg capsule and Dilantin 100 mg p.o. at bedtime. He is on polyethylene glycol 17 grams daily, senna 1 tablet twice a day, and omeprazole 40 mg daily. REVIEW OF SYSTEMS: Unobtainable. PHYSICAL EXAMINATION: GENERAL: On arrival to the Emergency Room, he looked pale, cachectic, but no jaundice, cyanosis, or thyromegaly. No jugular venous distention. No lower limb edema. VITAL SIGNS: His heart rate was 49, blood pressure was 176/68, temperature was 98.8, respiratory rate was 18, and oxygen saturation was 100% on room air. HEAD, EYES, EARS, NOSE, AND THROAT: Showed normocephalic, atraumatic. NECK: Supple. HEART: Showed normal first and second heart sounds. No gallop or murmur. CHEST: Clear to auscultation. No crepitation or rhonchi. ABDOMEN: Distended, soft, nontender. There is no guarding or rigidity. No organomegaly. All hernial orifices intact. Bowel sounds normal. NEUROLOGIC: He has cerebral palsy. He is nonverbal. He has marked muscle wasting and flexion-contraction of all 4 limbs. LABORATORY DATA: His lab work on arrival showed a white cell count 12,500, hemoglobin 15, hematocrit 47, MCV 92, and platelet count of 159,000. His prothrombin time, INR, and aPTT are normal. His chemistry showed a serum sodium 140, potassium 3.6, chloride 97, bicarbonate 31, anion gap of 12, BUN 12, creatinine 0.8, estimated GFR was 160 mL per minute. His glucose 181 and lactic acid was 4.1. Calcium was 9.3. Total bilirubin, AST, ALT were normal. Alkaline phosphatase was elevated. CK was 77. Total protein was 8.8, albumin was 4.3. Amylase was slightly elevated at 130; however, lipase was actually low, even below the lower limit of normal. Urinalysis showed the urine was straw colored, hazy, with a pH of 7.5, specific gravity 1.020, and the urine was negative for protein. There was large amount of glucose, negative for ketones, moderate amount of blood, negative for nitrite, and leukocyte esterase negative. There were 6-10 rbc's, 1-4 wbc's, and no bacteria. His toxic screen was negative; however, his phenytoin level was 18.2. His influenza A and B were negative. The patient has a CT scan which showed that he has gastric distention with air and contrast fluid level, but no wall thickening, thickened rolle and narrowed lumen in the duodenum. Partial obstruction cannot be excluded. Prominent renal pelvis bilaterally, but no apparent obstructive uropathy. PLAN: The plan is obviously to continue with his IV fluid, continue with Flagyl and ceftriaxone. Continue with famotidine IV. Continue with morphine sulfate as well as lorazepam. I will repeat all his labs this afternoon. LINDA AZEVEDO MD DR: PEDRO/rich JOB#: [id number] / [id number]
[2019-04-23 16:57] VITALS: BP 155/76
[2019-04-23 17:02] VITALS: BP 112/63
[2019-04-23 20:00] VITALS: BP 115/66
[2019-04-23] MEDS ORDERED: MIDAZOLAM HCL PF 5 MG/5 ML VIAL. ONE (21:00)
[2019-04-23] MEDS ORDERED: SUCCINYLCHOLINE 200 MG/10 ML VIAL. ONE (21:00)
[2019-04-23] MEDS ORDERED: LIDOCAINE 2% SYRINGE 100 MG/5 ML DISP.SYRIN. ONE (21:00)
[2019-04-23] MEDS ORDERED: LACTOBACILLUS RHAMNOSUS GG 1 CAPSULE. PO SCH (21:00)
[2019-04-23 22:45] VITALS: BP 129/69
--- NOTE | 2019-04-23 22:50 | RAD ---
Exam: Chest one view INDICATION: Possible fluid overload TECHNIQUE: Frontal view of the chest Comparisons: 07/03/2018 FINDINGS: Enteric tube with tip coiled in the left upper quadrant likely within stomach. The cardiomediastinal silhouette and pulmonary vessels are within normal limits. The lung and pleural spaces are clear. IMPRESSION: Lines and tubes described above. No acute pulmonary process. Electronically signed by: Kade Coreas MD (04/23/2019 10:47 PM) [facility]
[2019-04-23] MEDS ORDERED: FUROSEMIDE 40 MG/4 ML VIAL IVP ONE (23:00)
[2019-04-23] MEDS ORDERED: ALBUTEROL SULFATE 2.5 MG/3 ML NEBU. NEB PRN (23:15)
[2019-04-23 23:46] LABS: BGAS PH 7.45 (7.35-7.46)
[2019-04-24 00:21] VITALS: BP 125/85
[2019-04-24] MEDS ORDERED: PROPOFOL 100 ML IV ONE (00:33)
[2019-04-24] MEDS ORDERED: PROPOFOL 100 ML IV PRN (01:15)
[2019-04-24] MEDS ORDERED: ERYTHROMYCIN 0.5% OPHTH OINTMENT 1GM TUBE. OU ONE (01:30)
[2019-04-24] MEDS ORDERED: NOREPINEPHRINE BITARTRATE 4 MG/4 ML VIAL. IV ONE (01:44)
[2019-04-24] MEDS ORDERED: NOREPINEPHRINE BITARTRATE 8 MG in IV NORMAL SALINE 250ML 250 ML IV PRN (01:45)
[2019-04-24] MEDS ORDERED: IV RINGERS SOLUTION,LACTATED 1,000 ML IV ONE ×2 (02:00→02:30)
[2019-04-24] MEDS ORDERED: IOHEXOL 350 MG/ML 100 ML VIAL. IV ONE (02:00)
[2019-04-24] MEDS ORDERED: CONTRAST GIVEN MC PRN (02:00)
[2019-04-24 02:42] LABS: BASO % 0 % (0-3); EOS % 0 % (0-3); HEMATOCRIT 43.2 % (39.0-53.0); HEMOGLOBIN 14.1 g/dL (13.0-17.5); LYMPH # 0.7 x10^3/uL (1.0-4.8); LYMPH % 5 % (24-48); MEAN CORPUSCULAR HEMOGLOBIN 30 pg (25-35); MEAN CORPUSCULAR HGB CONC 33 g/dL (31-37); MEAN CORPUSCULAR VOLUME 91 fL (79-100); MONO # 0.8 x10^3/uL (0.0-1.1); MONO % 6 % (0-9); NEUT # 11.5 x10^3uL (1.8-7.7); NEUT % 89 % (31-73); PLATELET COUNT 137 x10^3/uL (140-400); RED BLOOD COUNT 4.78 x10^6/uL (4.30-5.70); WHITE BLOOD COUNT 12.9 x10^3/uL (4.0-11.0)
[2019-04-24 02:52] VITALS: BP 149/94
[2019-04-24 03:02] VITALS: BP 143/88
[2019-04-24 03:04] LABS: ALBUMIN 3.1 g/dL (3.4-5.0); ALBUMIN/GLOBULIN RATIO 0.8 (1.0-1.7); CALCIUM 9.3 mg/dL (8.5-10.1); CREATININE 0.7 mg/dL (0.7-1.3); GFR 123.7; TOTAL BILIRUBIN 0.4 mg/dL (0.2-1.0); TOTAL PROTEIN 7.1 g/dL (6.4-8.2)
[2019-04-24 03:06] LABS: POTASSIUM 2.8 mmol/L (3.5-5.1)
[2019-04-24] MEDS: POTASSIUM CHLORIDE 20MEQ 100 ML IV SCH ×2 (03:33→05:04)
--- NOTE | 2019-04-24 03:35 | RAD ---
CT head without contrast: Reason for examination: Pupils nonreactive. Mental status changes. Comparison is made to previous study dated 09/21/2018. Axial images were obtained through the brain. No contrast was administered. Ventricular systems are dilated but unchanged. 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 There does appear to be a new 5 mm shift of midline to the right. There is no intraparenchymal hemorrhage. No abnormalities of seen at the orbits. No acute bony abnormalities are seen. 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 New 5 mm shift of midline to the right. No intraparenchymal hemorrhage evident.. CT angiograms of the head and neck with contrast: Helical images were obtained through the head and neck with intravenous administration of 50 cc Omnipaque 350 using angiographic protocol. 3-D MIPS reconstruction was performed in sagittal and coronal planes. The intracranial carotid arteries bilaterally are patent. There is normal bifurcation into their respective anterior and middle cerebral arteries. A focal site of stenosis or occlusion is not seen. The intracranial vertebral arteries and basilar artery are patent without a site of stenosis or occlusion. There appears be vascular flow in the superior cerebellar and posterior cerebral arteries bilaterally. No large vessel occlusion is identified. The brachiocephalic, left common carotid artery and left subclavian arteries arise from the aorta. The common carotid arteries and internal carotid arteries appear to be patent with no evidence of significant stenosis. The vertebral arteries arise from their respective subclavian arteries and show no evidence of stenosis or occlusions. There appears to be a cystic lesion in the right lobe of the thyroid gland posteriorly measuring approximately 1.5 cm in greatest dimension. Vocal cords are symmetric. Endotracheal tube and NG tube are present. Muscular bundles are symmetric. The parotid and submandibular gland show no gross abnormalities. No acute abnormality seen in the cervical spine. IMPRESSION: No intracranial vascular abnormalities are identified. The carotid and vertebral arteries in the neck are patent. CT angiogram of the chest with contrast: Helical images were obtained through the chest with 50 cc Omnipaque 350 intravenous contrast administered using PE protocol. 3-D MIPS reconstruction was performed in sagittal and coronal plane. There appears to be 1.5 cm hypodense lesion superiorly in the right lobe of thyroid gland. Endotracheal tube and NG tube remain in place. The thoracic aorta shows mild dilatation at 3.1 cm at the ascending thoracic aorta. The descending thoracic aorta is normal in caliber. No dissection is seen. The heart size is normal with no pericardial effusion. There is no evidence of pulmonary embolus. There is a large left pneumothorax present with collapse of the left upper and lower lobes. There is also some patchy infiltrate in the right lower lobe. No pleural effusion is seen. No abnormality seen at the liver, spleen or adrenal glands. IMPRESSION: Large left pneumothorax with collapse of the left upper and lower lobes. Patchy infiltrate in the right lower lobe. No evidence of pulmonary embolus. Exposure: One or more of the following individualized dose reduction techniques were utilized for this examination: 1. Automated exposure control 2. Adjustment of the mA and/or kV according to patient size 3. Use of iterative reconstruction technique. Electronically signed by: Catia Steven MD (04/24/2019 3:32 AM) [facility]
--- NOTE | 2019-04-24 03:35 | RAD ---
Chest AP portable at 0124: Reason for examination: Pupils are nonreactive. Comparison is made to previous study dated 04/23/2019. Left central venous catheter appears be present. Endotracheal tube is now present appears satisfactory position with the tip approximately 3.5 cm above the kana. NG tube remains present with the tip in the region of the stomach. Heart and mediastinum are unremarkable. There appears to be new lucency at the left lung base and a pneumothorax is suspected. Right lung field is clear. No acute bony abnormalities are seen. IMPRESSION: New lucency in the left lung base consistent with pneumothorax. Electronically signed by: Catia Steven MD (04/24/2019 3:32 AM) [facility]
--- NOTE | 2019-04-24 04:26 | RAD ---
Chest AP portable at 0403: Reason for examination: Pneumothorax. New chest tube. Comparison is made to previous chest dated 04/24/2019. Endotracheal tube, NG tube and left central venous catheter remain in place. Left chest tube is now present and there has been reexpansion of the left lung. There is however still some density consistent with atelectasis at the left lung base. The right lung field is clear except for small calcified granuloma. No acute bony abnormalities are seen. IMPRESSION: Left chest tube in place with reexpansion of the left lung but there is still some density consistent with atelectasis at the left lung base. Electronically signed by: Catia Steven MD (04/24/2019 4:23 AM) [facility]
--- NOTE | 2019-05-04 12:18 | DS ---
DATE OF DISCHARGE: 04/24/2019 HOSPITAL COURSE: This is a 44-year-old male patient who was originally admitted to [facility] with recurrent runs of nausea, vomiting as well as diarrhea and apparently his roommate got sick the day before admission and started having these symptoms. On the day of admission, he also has malaise, weakness and fever. He was evaluated in the Emergency Room. His lab work showed that he has lactic acidosis with lactic acid initially at 4.1 that has risen further to 7.6; however, his serum amylase and lipase was normal. He has had mild leukocytosis. Urinalysis was essentially unremarkable. Toxic screen was negative except that his phenytoin level was, actually if anything, at the upper limit of normal. He has had acute abdomen series, which basically showed that there is no new lobar consolidation, pleural fluid or pneumothorax. Pericardial cardiac silhouette is again enlarged. There is unchanged fullness in the right hilar region. There is an S-shaped scoliosis. The CT scan of the abdomen and pelvis showed that the patient has gastric distention with air and contrast fluid level, but no wall thickening. Thickened wall with narrowed lumen of the duodenum. Partial obstruction cannot be excluded. The patient has had an NG tube placed and was started on IV fluid, IV Dilantin, Zofran and again on IV Rocephin and Flagyl. Apparently, the patient's clinical status worsened at night time. He became markedly tachypneic, hypoxic; therefore, we discontinued his IV fluids, giving him Lasix together with frequent suctioning. We did start him on a Venturi mask. His blood gases showed that he is extremely hypoxic and therefore, the patient was intubated and the position of the orotracheal and orogastric tube were confirmed and the patient was transferred to [facility] ICU to continue with IV antibiotic, continue with suction and to consult the art glass designer, Infectious Disease specialist as well as the surgical team. Prior to transfer to [facility], the patient was mostly unresponsive. PHYSICAL EXAMINATION: GENERAL: He was pale, cachectic, but no jaundice, cyanosis or thyromegaly. No jugular venous distension. No lower limb edema. VITAL SIGNS: His heart rate was 60, blood pressure 143/88, temperature was 97, respiratory rate was 16, oxygen saturation was 100% on FiO2 of 100%. HEAD, EYES, EARS, NOSE AND THROAT: Showed normocephalic, atraumatic. His orotracheal and orogastric tube in place. NECK: Supple. HEART: Normal first and second heart sounds. No gallop or murmur. CHEST: Clear to auscultation. No crepitation or rhonchi. ABDOMEN: Distended, soft, nontender. No guarding or rigidity. No organomegaly. All hernial orifices are intact. Bowel sounds normal. NEUROLOGIC: He was unresponsive, obviously sedated. LABORATORY DATA: His lab work showed a serum sodium 146, potassium 2.8, chloride 106, bicarbonate 31, anion gap of 9, BUN 5, creatinine 0.7, estimated GFR was 123 mL per minute, his glucose 114, calcium was 9.3. Total bilirubin, AST, ALT, alkaline phosphatase were normal. Total protein 7.1, albumin 3.1. White cell count was 12,900, hemoglobin 14, hematocrit 43, MCV 91 and platelet count 237,000. Blood gases showed a pH of 7.45, pCO2 of 45, pO2 of 48, bicarbonate 32, oxygen saturation was 86% on FiO2 of 30%. His urinalysis was unremarkable. Toxic screen was negative. His influenza A and B were negative. ASSESSMENT: Acute hypoxic respiratory failure, requiring intubation and mechanical ventilation; aspiration pneumonia as the patient has recurrent bouts of nausea, vomiting and gastric and duodenal dilatation indicating possible proximal bowel obstruction. The patient is known to have seizure disorder and he has also cerebral palsy. LINDA AZEVEDO MD DR: PEDRO/rich JOB#: [id number] / [id number]
== END 2019-04-24 05:12 | disposition short-term general hospital (02) | DRG 208 ==
LOC: ER 19:56 → 1 SOUTH 04-23 08:40
PROVIDERS: ADMIT Internal Medicine; ATTEND Internal Medicine
PROC: 0BH17EZ Insertion of Endotracheal Airway into Trachea, Via Natural or Artificial Opening (ICD-10-PCS; principal; 2019-04-24)
PROC: 5A1935Z Respiratory Ventilation, Less than 24 Consecutive Hours (ICD-10-PCS; 2019-04-24)
DX: J69.0 Pneumonitis due to inhalation of food and vomit (principal); J96.01 Acute respiratory failure with hypoxia; E87.2 Acidosis; K56.699 Other intestinal obstruction unspecified as to partial versus complete obstruction; R19.7 Diarrhea, unspecified; R50.9 Fever, unspecified; R53.81 Other malaise; D72.829 Elevated white blood cell count, unspecified; E11.65 Type 2 diabetes mellitus with hyperglycemia; R00.1 Bradycardia, unspecified; R74.8 Abnormal levels of other serum enzymes; G40.909 Epilepsy, unspecified, not intractable, without status epilepticus; G80.9 Cerebral palsy, unspecified; I10 Essential (primary) hypertension; K31.89 Other diseases of stomach and duodenum; M41.9 Scoliosis, unspecified; Z86.73 Personal history of transient ischemic attack (TIA), and cerebral infarction without residual deficits
CPT/HCPCS: 36415; 70450; 70496; 70498; 71045; 71275; 74022; 74177; 80048; 80053; 80076; 80185; 80307; 81001; 82150; 82550; 82803; 83605; 83615; 83690; 83880; 84484; 85025; 85610; 85730; 87040; 87804; 93005; 94002; 94640; 96361; 96365; 96367; 96375; J0330; J0696; J1885; J1940; J1956; J2250; J2405; J2704; J3370; J3480; J3490; J7042; J7050; J7120; P9612; Q2009; Q9966; Q9967; 99285-25